=== PATIENT | male | born 1925 | race Caucasian/White ===

== ENCOUNTER 2016-07-17 13:46 | Inpatient (IN) | payer MEDICARE, OTHER ==
[~2016-07-17] VITALS: Ht 170.2 cm; Wt 68.8 kg
--- NOTE | ~2016-07-17 | ECHO ---
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 Summary The estimated left ventricular ejection fraction is 50%WMAs are difficult to comment on.The left ventricle is normal in size .Mild concentric left ventricular hypertrophy. Increased RA pressures. MAC. Mild mitral regurgitation by color Doppler. Mild aortic sclerosis. There is mild aortic regurgitation by color Doppler. TDS. Procedure Type of Study TTE procedure:2D Echocardiogram, M-Mode, Doppler , Color Doppler. Procedure Date Date: 07/20/2016 Start: 01:04 PM Study Location: Inpatient Portable Technical Quality: Adequate visualization Indications:Acute and subacute bacterial endocarditis and Endocarditis. Appropriate Use Criteria: 9 Patient Status: Routine HR: 111 bpm BP: 100/58 mmHg M-Mode/2D Measurements LV Diastolic Dimension: 2.85 cm LV Systolic Dimension: 1.68 cm LV Septum Diastolic: 1.13 cm LV PW Diastolic: 1.12 cm AO Root Dimension: 3.2 cm Cardiac Output: 4.59 l/min LA Dimension: 2.1 cm LVOT: 1.9 cm LVOT VTI: 14.6 cm RV Base: 3.42 cm LV Stroke volume: 41.37 ml RV Length: 5.75 cm TAPSE: 1.13 cm TDI-S': 13.8 cm/s Doppler Measurements AV Peak Velocity: 1.28 m/s MV Peak E-Wave: 0.54 m/s AV Peak Gradient: 6.55 mmHg MV Peak A-Wave: 0.71 m/s AV Mean Gradient: 4 mmHg MV E/A Ratio: 0.76 LVOT Peak Velocity: 0.72 m/s MV P1/2t: 75 msec AV P1/2t: 715 msec TR Gradient:19.54 mmHg PV Peak Velocity: 0.78 m/s PV Peak Gradient: 2.4 mmHg E' Septal Velocity: 0.05 m/s A' Septal Velocity: 0.08 m/s E' Lateral Velocity: 0.06 m/s A' Lateral Velocity: 0.11 m/s Findings Left Ventricle The left ventricle is normal in size .Mild concentric left ventricular hypertrophy.LVEF is low normal or mildly reduced.EF:50%WMAs are difficult to comment on. Right Ventricle Normal right ventricle structure and function. Left Atrium Normal left atrial size. Right Atrium Normal right atrial size. Increased RA pressures. Mitral Valve Mild mitral annular calcification. Mild mitral regurgitation by color Doppler. Aortic Valve The aortic valve is mildly sclerotic. There is mild aortic regurgitation by color Doppler. Tricuspid Valve Normal tricuspid valve structure and function. Pulmonic Valve Normal pulmonic valve structure and function. Trivial pulmonic valve regurgitation by color Doppler. Pericardial Effusion No evidence of pericardial effusion. Miscellaneous Visualized portions of the aortic root and ascending aorta appear normal in size. Pleural Effusion No evidence of pleural effusion. Contractility Score LV regional wall motion:(0-Non visualized 1-Normal 2-Hypokinesis 3-Akinesis 4-Dyskinesis 5-Aneurysm) Signature dtt: Yaquelin Sequeira dtd: 07/20/16 1304 Physician Self Edit
--- NOTE | ~2016-07-17 | CON ---
PATIENT'S NAME: LASHAE LEVY [facility] AGE: 89 Y [address] ROOM: G6210 [place], [place] [address] LOCATION: GICU ADMIT DATE: 07/17/2016 Consultation DISCHARGE DATE: FAMILY PHYSICIAN: Jase Pink MD ATTENDING PHYSICIAN: MARLIN MELTON DATE OF CONSULTATION: 07/17/2016 REFERRING PHYSICIAN: SHEREE LU MD REASON FOR CONSULTATION: Evaluation and management of a patient with acute respiratory failure including mechanical ventilator management. CHIEF COMPLAINT: Altered mental status. HISTORY OF PRESENT ILLNESS: This is an 89-year-old gentleman with history of advanced dementia, atrial fibrillation, stage IV sacral ulcer, coronary artery disease, TIA, and multiple other comorbidities, who was brought in by his son to our emergency department for altered mental status. All the pertinent information was obtained from talking to the other healthcare providers and the patient's son. At the time of my examination, the patient was intubated and sedated in the intensive care unit. Apparently although he has dementia, he is still able to talk at his baseline. However for the last week, the patient stopped talking and has had a very poor appetite. Today, the son found his father to be very weak and brought him to our emergency department. There was evidence of significant swelling of his left knee, reason for which Dr. Melton performed a left knee arthrocentesis. He reportedly drained pus. Upon arrival to the emergency department, the patient was found to be also in respiratory failure. BiPAP was attempted, but eventually the patient had to be intubated because of his profound generalized weakness and increased respiratory rate. After intubation, the patient was started on assist-control mode with a tidal volume of 500, respiratory rate of 20, PEEP of 5, and FiO2 of 100% initially. At the time of my arrival to the intensive care unit, the patient was on 60% FiO2 with oxygen saturations in the upper 90s. His peak airway pressures were in the mid 20s. However, he was breathing over the vent with occasional rates of 35. An ABG done prior to intubation revealed a pH of 7.4, pCO2 of 23, PO2 of 47 while on 5 L of oxygen. The base deficit was 8.8 and lactate was 3.2. Because of the patient's acute respiratory failure with intubation and initiation of mechanical ventilation, I was asked by the admitting physician Dr. Melton to come and evaluate the patient. PAST MEDICAL HISTORY: 1. Coronary artery disease. PATIENT'S NAME: LASHAE LEVY [facility] AGE: 89 Y [address] ROOM: [place] [address] LOCATION: GICU ADMIT DATE: 07/17/2016 Consultation DISCHARGE DATE: FAMILY PHYSICIAN: Jase Pink MD ATTENDING PHYSICIAN: MARLIN MELTON 2. History of TIA. 3. Atrial fibrillation, not on any anticoagulation. 4. Advanced dementia. 5. Protein caloric malnutrition. 6. Stage IV sacral ulcer. 7. Failure to thrive. 8. Urinary strictures, status post permanent Robles catheter placement. PAST SURGICAL HISTORY: 1. Coronary artery bypass graft surgery. 2. Hernia repair. 3. Bilateral knee replacement. MEDICATIONS: Home medications were reviewed as per chart. FAMILY HISTORY: Three of his brothers had heart surgeries; his daughter the child had stroke, and diabetes. His parents had hypertension. SOCIAL HISTORY: The patient lives in a nursing facility and needs assistance throughout the day and night. He has no recent history of alcohol, tobacco, or illicit drug abuse. ALLERGIES: TO PENICILLIN, SULFA, AND MEPERIDINE. REVIEW OF SYSTEMS: Could not be obtained because of patient's clinical status. He was intubated and sedated at the time of my examination. PHYSICAL EXAMINATION: VITAL SIGNS: Temperature was 103.2, pulse was 127, respiratory rate was 30, blood pressure was 112/77, oxygen saturation 97% on 60% FiO2, weight 61.5 kilos, height was 5 feet and 7 inches with a BMI of 21.2. GENERAL: This is an elderly male, frail looking. Intubated and sedated with sedation analgesia score of 3. NEUROLOGICAL: Moving all extremities at times, but not able to follow any commands. HEENT: Atraumatic head. Pupils were reactive to light. Anicteric sclerae. Dry oral mucosa. NECK: Supple with no JVD with flat neck veins. No thyromegaly. No lymphadenopathy. Trachea is in midline. CARDIOVASCULAR: Irregularly irregular rhythm and rate. No murmur, rubs, or PATIENT'S NAME: LASHAE LEVY [facility] AGE: 89 Y [address] ROOM: G6210 [place], [place] [address] LOCATION: [facility] ADMIT DATE: 07/17/2016 Consultation DISCHARGE DATE: FAMILY PHYSICIAN: Jase Pink MD ATTENDING PHYSICIAN: MARLIN MELTON. RESPIRATORY: He had decreased breath sounds at both lung bases, but clear to auscultation otherwise. ABDOMEN: Soft, nontender, and nondistended. Bowel sounds are present. EXTREMITIES: No lower extremity edema. No cyanosis and no clubbing. LABORATORY DATA: Pertinent data as per history of present illness. His ammonia level was elevated at 61. D-dimer was 7.37. A complete metabolic profile revealed a sodium of more than 175 - this is above the upper limit of detection. Potassium was 4, chloride was 143, total serum bicarbonate of 17, glucose of 142, calcium of 9.5, BUN of 77, creatinine of 2. Albumin of 2.1, total protein of 6.7, globulin of 4.6, AST of 21, ALT of 34, alkaline phosphatase of 100. Uric acid was 18.6, procalcitonin was 0.25. WBC of 19.4, hemoglobin of 11.3, hematocrit of 29.2, and platelets of 603. Troponin I was less than 0.04. IMAGING STUDIES: Chest x-ray, reviewed by me, did not show any focal opacities to suggest pneumonia. He also had no pleural effusions, pneumothorax, or significant cardiomegaly. ASSESSMENT AND PLAN: 1. Acute respiratory failure. This is in context of severe sepsis in a patient with failure to thrive, advanced dementia, and severe dehydration. He is status post intubation and initiation of mechanical ventilation with stable respiratory status. 2. Severe sepsis. This is due to septic left knee arthritis. 3. Acute kidney injury. This is in context of severe sepsis. 4. Hyponatremia. This is very severe, most likely due to total water deficit in context of decreased p.o. intake. 5. Septic left knee arthritis. The orthopedic surgeon, Dr. Lu, has already been involved in the case. 6. Atrial fibrillation with rapid ventricular rate. He was started on Cardizem drip. 7. Metabolic acidosis. This is in context of severe sepsis and is of lactic acid type. PLAN: 1. We will continue mechanical ventilation and we will await for resolution or improvement of severe sepsis and organ dysfunction before proceeding with spontaneous breathing trial. 2. IV fluids will be as per renal and hospitalist teams. The patient needs aggressive hydration, but with close followup of his sodium levels to prevent brain edema. PATIENT'S NAME: LASHAE LEVY [facility] AGE: 89 Y [address] ROOM: [place] [address] LOCATION: [facility] ADMIT DATE: 07/17/2016 Consultation DISCHARGE DATE: FAMILY PHYSICIAN: Jase Pink MD ATTENDING PHYSICIAN: MARLIN MELTON 3. I would hold off on knee surgery for now secondary to the patient's multiorgan dysfunction syndrome. 4. He was started on broad-spectrum antibiotics in the form of meropenem and vancomycin and I agree with this. 5. He will need close followup of his CBC, complete metabolic profile, and cultures. 6. He is at high risk of developing septic shock. Because of his increased heart rate, I wish to start him on phenylephrine as the first vasopressor of choice. The goal is to keep the mean arterial pressure more than 65. The current assessment and plan was discussed with the patient's son, the hospitalist, Dr. Garcia from [facility] and Dr. Lu. I spent 45 minutes of critical care time managing acute respiratory failure in a patient with severe sepsis due to septic left knee arthritis and multiple metabolic abnormalities and organ dysfunction was. I personally reviewed the data and coordinated care among healthcare providers, and personally updated the family at the bedside. This time is independent from the time spent for procedures. I would like to thank you, Dr. Melton, for giving me the opportunity to participate in this patient's care. MD KIMBERLEE ODOM/carmen /[id number] d: 07/18/16 1158 t: 07/19/16 1347, CONSULTATION REPORT
--- NOTE | ~2016-07-17 | CON ---
PATIENT'S NAME: LASHAE LEVY [facility] AGE: 89 Y [address] ROOM: G6210 [place], [place] [address] LOCATION: GICU ADMIT DATE: 07/17/2016 Consultation DISCHARGE DATE: FAMILY PHYSICIAN: Jase Pink MD ATTENDING PHYSICIAN: MARLIN GONZALEZ DATE OF CONSULTATION: 07/22/2016 REFERRING PHYSICIAN: SHEREE LU MD REASON FOR CONSULTATION: MRSA bacteremia, septic left total knee arthroplasty, and sepsis. HISTORY OF PRESENT ILLNESS: Mr. Gege French is an 89-year-old male who resides at a skilled facility. He was brought in after his son noticed that he was not doing very well. He has multiple medical problems and has not been mobile for some time. Apparently, he has not been eating much or talking much over the past week. His knee seemed to be worse as well, and so he brought him in. In the ED, he had effusion of his knee, so this was tapped, and it was pus. His culture from this is growing MRSA, and he also has blood cultures that were growing MRSA. It is noted that his sodium was over 175 as well, and he was profoundly dehydrated. He has been resuscitated and remains critical in the ICU. He is planned to have an explant of his left total knee arthroplasty today. ID is asked to see and assist with further antibiotics. The patient apparently had his knee done about 20 years ago in [place]. Apparently, he has had long- standing problems with the left knee, but the son does not think it was ever infected. Currently, at baseline, he talks, but does not make a lot of sense. He has also had a large sacral pressure ulcer that he was here for some time in the past, but still has a sacral pressure ulcer that probes to bone. ID is asked to see and assist with antibiotics. PAST MEDICAL HISTORY: Significant for the dementia, coronary artery disease, atrial fibrillation, stage IV pressure ulcer, bilateral knee replacements, and urethral strictures. MEDICATIONS: Noted. 1. He has been on vancomycin. 2. Now, he is on meropenem, which was started today. ALLERGIES: LISTED TO PENICILLINS, SULFA, AND MEPERIDINE. SOCIAL HISTORY: He is at a prison facility. He is not currently smoking, I do not PATIENT'S NAME: LASHAE LEVY [facility] AGE: 89 Y [address] ROOM: G6210 [place] [address] LOCATION: GICU ADMIT DATE: 07/17/2016 Consultation DISCHARGE DATE: FAMILY PHYSICIAN: Jase Pink MD ATTENDING PHYSICIAN: MARLIN GONZALEZ know about past habits; really not contributory in this case. FAMILY HISTORY: Really not contributory to this case given his age and multiple medical problems. REVIEW OF SYSTEMS: Not obtainable given his dementia and current status, intubated and septic, in the ICU. PHYSICAL EXAMINATION: GENERAL: He is not responsive. Orally intubated. VITAL SIGNS: His T-max now is 99.0, blood pressure is 110/61, pulse is 79, and respirations 27. HEENT: Pupils respond. He is orally intubated. NECK: Supple. LUNGS: Coarse. ABDOMEN: Soft. EXTREMITIES: He has an effusion about his left knee. It is only mildly warm. There is no drainage or erythema. The skin is otherwise without rash. LABORATORY DATA: Sodium, which was greater than 175, is down to 149; potassium 3.2; chloride 124; bicarbonate is 15; BUN 49; and creatinine 1.2. White count 6.8, hemoglobin 7.3, and platelet count 168. ESR is 109. His synovial fluid: White cells were 100,300, of which 98% were polys. He did not have any crystals. Blood cultures on presentation on the are both growing MRSA. Urine culture is growing MRSA and diphtheroids. Synovial fluids: MRSA. BAL is MRSA along with Mary albicans. Chest x-ray shows an increasing left lower lobe focal opacity. ASSESSMENT: 1. Bacteremia with methicillin-resistant Staphylococcus aureus. 2. Septic left total knee arthroplasty with methicillin-resistant Staphylococcus aureus. 3. Sepsis. 4. Question pneumonia. 5. Dementia. 6. Sacral pressure ulcer. PLAN: Agree with vancomycin. Dose based on his renal function has been done and would keep his trough in the 15 to 18 range if it all possible. Meropenem was added today, although it is not clear that he has a new pneumonia. He is afebrile, and his white count has come down as time has gone on. If anything, PATIENT'S NAME: LASHAE LEVY [facility] AGE: 89 Y [address] ROOM: [facility] [place] [place] [address] LOCATION: [facility] ADMIT DATE: 07/17/2016 Consultation DISCHARGE DATE: FAMILY PHYSICIAN: Jase Pink MD ATTENDING PHYSICIAN: MARLIN GONZALEZ this might be just related to the MRSA. If nothing shows up on a new sputum culture, would stop his meropenem. He is going to go to the OR today. Thus, will need vancomycin for 6 weeks. In the big picture, his prognosis is extremely grim given his multiple medical problems and his current status with MRSA sepsis. I would prefer a more palliative approach here. Discussed with Dr. Apodaca. MD FREDO ATWOOD/carmen /[id number] d: 07/22/16 1806 t: 08/19/16 1758, CONSULTATION REPORT
--- NOTE | ~2016-07-17 | CON ---
PATIENT'S NAME: LASHAE LEVY [facility] AGE: 89 Y [address] ROOM: [place] [address] LOCATION: [facility] ADMIT DATE: 07/17/2016 Consultation DISCHARGE DATE: FAMILY PHYSICIAN: Jase Pink MD ATTENDING PHYSICIAN: MARLIN MELTON DATE OF CONSULTATION: 07/20/2016 REFERRING PHYSICIAN: Marlin Melton MD REASON FOR VISIT: Wound Care visit to evaluate and treat a stage IV full-thickness sacral pressure ulcer. HISTORY OF PRESENT ILLNESS: This is an 89-year-old male patient who was admitted to [facility] with respiratory failure. I am well familiar with the patient. I last saw him at the [facility] on July 08. He has had a stage IV sacral pressure ulcer since March 2016. The patient has been residing at the [facility] and they have been performing wet-to-dry dressing changes b.i.d. No necrosis noted to the wound bed, so we opted to switch the patient to Aquacel and a foam dressing; however, the [facility] called and said he needs at least daily dressing changes to qualify for skilled care, so we were going to continue wet-to-dry dressing changes through July 26. He was scheduled to see us on July 22 in the [facility]. The patient is currently intubated and unable to provide a history. He does have a significant history of dementia, coronary artery disease, atrial fibrillation, hypertension, CVA, TIA, hypercholesteremia, MRSA, and Pseudomonas. The [facility] has been lying him down and he is only up for meals. They also had him on a protein supplement 3 times a day. PAST MEDICAL HISTORY: Dementia, coronary artery disease, atrial fibrillation, history of a TIA, stage IV sacral pressure ulcer, protein-calorie malnutrition, failure to thrive, BPH, history of MRSA and Pseudomonas, urethral stricture, vitamin D deficiency, constipation, and anxiety disorder. PAST SURGICAL HISTORY: CABG, bilateral knee replacements, and hernia repair. FAMILY HISTORY: Per previous records, his parents had hypertension. PATIENT'S NAME: LASHAE LEVY [facility] AGE: 89 Y [address] ROOM: [place] [address] LOCATION: [facility] ADMIT DATE: 07/17/2016 Consultation DISCHARGE DATE: FAMILY PHYSICIAN: Jase Pink MD ATTENDING PHYSICIAN: MARLIN MELTON SOCIAL HISTORY: The patient currently is residing at [facility]. Prior to that, he was living in a [facility] in [place]. He was a former smoker. No alcohol use noted. ALLERGIES: PENICILLIN, SULFA, MEPERIDINE, AND BACTRIM. CURRENT MEDICATIONS: Please refer to the medication administration record. REVIEW OF SYSTEMS: Unable to complete due to the patient being intubated. PHYSICAL EXAMINATION: VITAL SIGNS: Temperature 97.8, pulse 80, respirations 29, blood pressure 119/83, and pulse oximetry 95%. Height 5 feet 7 inches and weight 65.1 kg. GENERAL: The patient is intubated. Pale. Thin. HEENT: Head is normocephalic and atraumatic. LUNGS: Respirations even and unlabored. ABDOMEN: Flat and nontender. EXTREMITIES: Deferred. SKIN: To the patient's sacrum, he has a pressure ulcer that measures 4.5 cm width x 4.5 cm length x 0.6 cm depth. There is undermining from the 12 o'clock to 9 o'clock area with the deepest portion probing to 1.0 cm. Wound bed is pale with about 10% exposed bone. Periwound is slightly macerated and red, but intact. Moderate amount of serosanguineous exudate noted. No odor or fluctuance noted. No purulent exudate noted. LABORATORY DATA: Sodium 162, potassium 3.1, chloride 133, bicarbonate 19, BUN 61, creatinine 1.4, and glucose 125. Albumin 2.6. Blood cultures are positive for MRSA. Respiratory cultures positive for MRSA and Mary albicans. ASSESSMENT AND PLAN: Again, this is an 89-year-old male patient who was admitted to [facility] with acute respiratory failure. Wound Care consulted to evaluate his stage IV sacral pressure ulcer. 1. Stage IV full-thickness sacral pressure ulcer. Area probes to bone. Stable since I last visualized it. No need for mechanical debridement with wet-to-dry dressing changes. I covered the site with a sample Aquacel Ag foam dressing. I instructed Nursing to change on Mondays and and p.r.n. saturation. On , we will switch the patient to Aquacel and an Allevyn foam dressing. If Nursing has any questions, they can give us a call at [phone]. The patient is currently stooling only PATIENT'S NAME: LASHAE LEVY [facility] AGE: 89 Y [address] ROOM: [place] [address] LOCATION: GICU ADMIT DATE: 07/17/2016 Consultation DISCHARGE DATE: FAMILY PHYSICIAN: Jase Pink MD ATTENDING PHYSICIAN: MARLIN MELTON once per day. If stooling is increased or dressing starts to roll we may have to figure out another option for the patient. Dietary consult was ordered. The patient's heels are to be afloat at all times. Strict pressure redistribution measures are to be performed and the patient is to be turned in bed q.2 hours side to side to relieve pressure to the site. The patient's son Chris still wants aggressive treatment. I wonder when it will be appropriate for more conservative measures. 2. Acute hypoxic respiratory failure. The patient is currently intubated. Hospitalist is managing. 3. Atrial fibrillation with rapid ventricular response. The patient is on metoprolol and Cardizem. 4. Severe sepsis. Likely secondary to urinary tract infection and left knee septic joint. The patient is on antibiotic therapy. Hospitalist is managing. 5. Protein-calorie malnutrition. Dietary consult. I would like to thank Dr. Melton for this consultation. RICARDO CUNNINGHAM APRN FOR MD LINDEN MENESES/carmen /[id number] d: 07/20/16 1222 t: 08/11/16 1352, CONSULTATION REPORT
--- NOTE | ~2016-07-17 | HP ---
PATIENT'S NAME: LASHAE LEVY [facility] AGE: 89 Y [address] ROOM: [place] [address] LOCATION: GICU ADMIT DATE: 07/17/2016 History & Physical DISCHARGE DATE: FAMILY PHYSICIAN: Jase Pink MD ATTENDING PHYSICIAN: MARLIN GONZALEZ DATE OF SERVICE: CHIEF COMPLAINT: Altered mental status. HISTORY OF PRESENT ILLNESS: An 89-year-old gentleman with a past medical history of advanced dementia, atrial fibrillation, not on any anticoagulation; history of bilateral knee replacement and infection of the prosthesis in the past; stage IV sacral ulcer; coronary artery disease; history of TIA; and failure to thrive, who was brought in by son today with altered mental status. Most of the history was obtained from the son and the chart reviewed. The son describes that he has been declining for over course of one week, not talking much, and having no appetite. Given his advanced dementia, son told that he usually talks but does not make much sense, but he quit talking one week ago. He did not complain of any chest pain at home, did not complain of any abdominal pain. He also has a history of urinary stricture, have a chronic indwelling Robles catheter. REVIEW OF SYSTEMS: Due to the patient's obtunded condition, review of systems could not be obtained. ALLERGIES: THE PATIENT IS ALLERGIC TO PENICILLIN, SULFA, MEPERIDINE WELL BACTRIM. PAST MEDICAL HISTORY: Includes: 1. Coronary artery disease. 2. Atrial fibrillation, not on any anticoagulation. 3. History of TIA. 4. Stage IV sacral ulcer. 5. Protein-calorie malnutrition. 6. Advanced dementia. 7. Failure to thrive. 8. Bilateral knee replacements. 9. Urinary strictures. CURRENT MEDICATIONS: PATIENT'S NAME: LASHAE LEVY [facility] AGE: 89 Y [address] ROOM: [place] [address] LOCATION: GICU ADMIT DATE: 07/17/2016 History & Physical DISCHARGE DATE: FAMILY PHYSICIAN: Jase Pink MD ATTENDING PHYSICIAN: MARLIN GONZALEZ Medications are being reconciled right now. FAMILY HISTORY: Reviewed with the son and was not significant for coronary artery disease or diabetes. SOCIAL HISTORY: The patient lives in nursing facility, needs to assist. No ongoing toxic habits. PHYSICAL EXAMINATION: VITAL SIGNS: In the emergency department, his heart rate was in the 160s, blood pressure was 112/76, his respiratory rate was greater than 25, and saturating 76% on BiPAP at the time of my evaluation. GENERAL: He is obtunded. CARDIOVASCULAR: Variable S1 and S2. No murmurs, gallops, or rubs. LUNGS: Clear to auscultation bilaterally. ABDOMEN: Soft, nontender, and nondistended. Bowel sounds present. EXTREMITIES: Left knee joint is warm, tender to touch and swollen. No clubbing or cyanosis is noted in the extremities. NEUROLOGIC: Exam was performed and GCS was 7 at the time of my examination. LABORATORY DATA AND IMAGING STUDIES: Chest x-ray was obtained on my review, does reveal some mild interstitial prominences and mild vascular congestion. No acute infiltrate could be seen at this point. His ABG in the emergency department showed a pH of 7.4, pCO2 of 23, and pO2 of 47. Lactic acid was elevated at 3.2. Accu-Chek was 132, ammonia level was up at 61. Two sets of troponin levels were negative. ProBNP was elevated at 1105. White count was elevated at 19, platelets 603,000, and hemoglobin of 11. His complete metabolic panel was impressive for sodium greater than 175 and was repeated, it was still greater than 175, potassium was 4.0, chloride 143, bicarbonate 17, calcium of 9.5, creatinine 2.0, BUN 77, total protein 6.7, and albumin 2.1. AST 21, ALT 34, and alkaline phosphatase 100. Total bilirubin 0.6, mag of 2.8. ESR 106, INR 1.2. His urinalysis on the Robles's was grossly positive for urinary tract infection. Procalcitonin was 0.25. ASSESSMENT AND PLAN: 1. Acute hypoxic respiratory failure. 2. Acute metabolic encephalopathy. 3. Severe sepsis likely secondary to urinary tract infection as well as left knee septic joint. 4. Atrial fibrillation with a rapid ventricular rate. 5. Septic left knee joint. 6. Stage IV decubitus sacral ulcers. PATIENT'S NAME: LASHAE LEVY [facility] AGE: 89 Y [address] ROOM: [facility] [place], [place] [address] LOCATION: [facility] ADMIT DATE: 07/17/2016 History & Physical DISCHARGE DATE: FAMILY PHYSICIAN: Jase Pink MD ATTENDING PHYSICIAN: MARLIN GONZALEZ 7. History of cerebrovascular accident. 8. History of transient ischemic attack. 9. Coronary artery disease. 10. Severe hypernatremia. 11. Severe metabolic acidosis. 12. 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 13. Adult failure to thrive. 14. Protein-calorie malnutrition. 15. Severe advanced dementia. PLAN: The patient's condition was discussed with the son who is power of electrical troubleshooter and he wanted to do everything for this patient except chest compression. It was asked again as the patient also have advance directive and son is the power of electrical troubleshooter. The son repeated that he wants everything to be done except chest compression. The patient was intubated in the emergency department because of hypoxia. He was brought down to the ICU. He was having atrial fibrillation with a rapid ventricular rate. We initiated with sepsis protocol, two sets of blood cultures have been ordered. Urinary cultures have been ordered. Broad-spectrum antibiotics have been initiated. He had already received 2 L of IV fluids. Metoprolol or Cardizem are being used to control the heart rate. Given his left knee swelling and recent administration of antibiotics, we aspirated his left knee with 10 mL off gross pus. Orthopedic consultation has been made. Nephrology has been consulted regarding his hypernatremia and management of that. We are going to repeat electrolytes every 4 hours. Wound Care has been consulted for stage IV ulcer. The patient's condition and prognosis is very guarded. This was discussed in depth with the son. I spent 75 minutes in providing critical care to this patient. MD LEILA HARRIS/carmen /[id number] D: 914 T: HISTORY & PHYSICAL
--- NOTE | ~2016-07-17 | DS ---
PATIENT'S NAME: LASHAE LEVY [facility] AGE: 89 Y [address] ROOM: [place] [address] LOCATION: [facility] ADMIT DATE: 07/17/2016 Discharge Summary DISCHARGE DATE: FAMILY PHYSICIAN: Jase Pink MD ATTENDING PHYSICIAN: Roshan Melton PRINCIPAL DIAGNOSIS: 1. Methicillin-resistant Staphylococcus aureus bacteremia. SECONDARY DIAGNOSES: 1. Acute hypoxic respiratory failure. 2. Acute metabolic encephalopathy. 3. Septic shock secondary to methicillin-resistant Staphylococcus aureus. 4. Septic left knee joint secondary to methicillin-resistant Staphylococcus aureus. 5. Methicillin-resistant Staphylococcus aureus urinary tract infection. 6. MSSA pneumonia. 7. Stage IV decubitus sacral ulcer, present on admission. 8. Atrial fibrillation. 9. History of cerebrovascular accident. 10. Coronary artery disease. 11. Severe hypernatremia. 12. Severe metabolic acidosis. 13. Adult failure to thrive. 14. Protein-calorie malnutrition. 15. Severe advanced dementia with poor quality of life. 16. Acute kidney injury. HOSPITAL COURSE: An 89-year-old gentleman with severe advanced comorbid conditions as mentioned above including adult failure to thrive, severe protein-calorie malnutrition, and very advanced dementia, who was admitted to the [facility] to the emergency department where he presented with history of 1 week of not talking, not eating, and not behaving himself as observed by the custodial facility and the son, and he was brought in. On admission to the hospital, he was severely hypoxic, obtunded. Son accompanied the patient. The patient had advanced directive, which made his son power of senior attorney. He was DNR/DNI. It was discussed with the son at the time of the admission to the hospital about the code status, and son wanted to do everything possible at this point except chest compression. The patient was intubated in the emergency department secondary to hypoxia with saturation 76%. Lab work initial was done showed severe sepsis with high white count and high procalcitonin level. Of note, his sodium level was greater than 175, which were nondetectable by our lab parameters. He was brought to the ICU on the ventilation. He was started on careful IV hydration with in-consultation with Nephrology to correct his hypernatremia, which we assume was there for many days PATIENT'S NAME: LASHAE LEVY [facility] AGE: 89 Y [address] ROOM: [id number] [place], [place] [address] LOCATION: [facility] ADMIT DATE: 07/17/2016 Discharge Summary DISCHARGE DATE: FAMILY PHYSICIAN: Jase Pink MD ATTENDING PHYSICIAN: Roshan Melton. He was started on broad-spectrum antibiotics initially. Left knee swelling was noted on initial physical exam. We did the arthrocentesis, which did reveal 10 mL of zoë pus coming out of it. Orthopedic consultation was made, but because of the patient's very severe critical illnesses, he was not cleared for anesthesia at that point. He continued to be treated with the IV antibiotics and IV hydration over the course of many days in the ICU. He was eventually extubated. His blood cultures did grow MRSA, which was sensitive to vancomycin. Finally, Orthopedic Surgery took the patient to the operating room and did the I and D of the left knee. Per Infectious Disease consultation, he was started on vancomycin for 6 weeks. Critical Care consultation was also obtained. After 2 to 3 weeks, he was transferred to the regular floor from the ICU. His condition was very guarded at that time as well. He was essentially nonverbal, and we could only find staring and no purposeful verbal response for him. Multiple discussions with the family were held including the palliative/hospice care regarding the poor quality of life and advanced comorbidities, but the son was adamant to continue to do everything possible we can except the chest compression. The patient was so altered mental status that it was not safe for him to swallow anything including a modified barium swallow, and again meeting was held with the son, and he wanted us to go ahead and put a PEG tube in him. We made a surgical consultation, and after talking to the family, they went ahead and put a PEG tube, and we started tube feeds through that. Wound care continued to see this patient through the hospitalization for the stage IV decubitus sacral ulcer, which has been there for many weeks before admission to the hospital. His condition remained pretty much the same during the course of the hospitalization with very poor quality of life expected. Multiple consultations as well as referrals were sent for the [facility] facility. [facility] have currently accepted this patient and will be transferring this patient on Wednesday. Before the discharge to the [facility], he again developed NANCY, which I believe was secondary to prerenal and improved with IV and PEG tube hydration. Discharge medications will be dictated later. CONSULTATIONS DONE DURING HOSPITALIZATION: Nephrology consultation, Orthopedic consultation, General Surgery consultation, Critical Care consultation, Vascular consultation, Palliative Care consultation. PROCEDURES DONE IN THIS HOSPITALIZATION: Intubation, central-line placement, PEG-tube placement, left knee hardware removal as well as irrigation and debridement. CONDITION ON DISCHARGE: Very guarded with poor prognosis. Rehabilitation potential poor. PATIENT'S NAME: LASHAE LEVY [facility] AGE: 89 Y [address] ROOM: [place] [address] LOCATION: [facility] ADMIT DATE: 07/17/2016 Discharge Summary DISCHARGE DATE: FAMILY PHYSICIAN: Jase Pink MD ATTENDING PHYSICIAN: Roshan Melton I spent 45 minutes in discharge planning of this patient. MD LEILA HARRIS/modl /[id number] d: 08/10/16 0323 t: 08/16/16 1507, DISCHARGE SUMMARY
--- NOTE | ~2016-07-17 | OR ---
PATIENT'S NAME: LASHAE LEVY [facility] AGE: 89 Y [address] ROOM: [place] [address] LOCATION: GICU ADMIT DATE: 07/17/2016 OR/Procedure Report DISCHARGE DATE: FAMILY PHYSICIAN: Jase Pink MD ATTENDING PHYSICIAN: MARLIN GONZALEZ SURGEON: Oziel Munguia MD LAB INSTRUCTOR: Calos Esposito PA-C. DATE OF PROCEDURE: 07/22/2016 PREOPERATIVE DIAGNOSIS: Left septic and loose total knee arthroplasty. POSTOPERATIVE DIAGNOSIS: Left septic and loose total knee arthroplasty. PROCEDURES PERFORMED: 1. Left total knee arthroplasty explant. 2. Placement of negative pressure incisional wound VAC, length of incision measuring 20 cm. ANESTHESIA: General endotracheal anesthesia. FLUIDS: See Anesthesia report. ESTIMATED BLOOD LOSS: Less than 50 mL. SPECIMENS: Left knee cultures, left knee joint soft tissue specimen, and removed total knee arthroplasty implant. COMPLICATIONS: None. DISPOSITION: Stable in PACU. COUNT RESULTS: All counts were correct. IMPLANTS: Include Josy antibiotic cement spacers and beads. INDICATIONS: Mr. Gege French is an 89-year-old gentleman, who was septic and hypernatremic. He has been in the ICU. He had the left total knee replaced in [place], [place] approximately 20 years ago. The knee has been set to be removed, with placement of antibiotic spacers today. The risks, benefits, and alternatives of pursuing a surgical intervention were discussed with the family as the patient is currently intubated. They elected to proceed with surgery. I marked the left lower extremity indicating the correct surgical site. Anesthesiology was consulted for the perioperative evaluation of the patient. OPERATIVE REPORT IN DETAIL: The patient was taken to the holding area of the PATIENT'S NAME: LASHAE LEVY [facility] AGE: 89 Y [address] ROOM: [place] [address] LOCATION: GICU ADMIT DATE: 07/17/2016 OR/Procedure Report DISCHARGE DATE: FAMILY PHYSICIAN: Jase Pink MD ATTENDING PHYSICIAN: MARLIN GONZALEZ Operating Room. General anesthesia was administered. The patient was previously intubated. Antibiotic was administered. The left lower extremity was then prepped and draped in a sterile fashion. I turned my attention to the the left knee, and an Esmarch was used to exsanguinate the limb. The tourniquet was deflated at 250 mmHg. There was a large knee joint effusion present on the previous anterior surgical incision from a previous left total knee replacement. I made a surgical incision through the previous surgical incision on the anterior aspect of the knee, the skin, subcutaneous tissue, and capsule down to the joint. There was approximately 300 mL of gross purulence removed from the joint and subsequently sent for culture. I then began by flexing the knee up and dislocating it. The femoral and tibial components were loose. I first removed the femoral component. I subsequently removed the tibial component and polyethylene liner. Using an oscillating saw, I removed the patellar button. I used a 3.5-mm drill bit to drill out the three polyethylene pegs from the patella. I used an oscillating saw to re-finish the surface to remove the thick bone cement that had been previously placed. I turned my attention to the distal femur. There was segmental loss of bone at the anterior aspect of the distal femur, and at the level of the lateral condyle. The medial femoral condyle was relatively well preserved. Notably, the patient's previous initial total knee replacement components were grossly oversized. I used the oscillating saw to clean up the distal femur, both anteriorly at the level of the medial and femoral condyles, and then posteriorly at the posterior condyles. I used an osteotome and mallet to remove any excess cement. I was very conservative in attempting to remove as little bone as possible, though most bone had been already resorbed as this implant probably failed many years ago. I used a series of curettes as well to remove bone and as well on the tibial side. I used a rongeur and Bovie electrocautery device to remove the inflamed synovium. Both my quadriceps tendon and patellar tendon were intact. The wound and the femoral and tibial intramedullary canals were irrigated with 6 L of normal sterile saline solution via pulsatile lavage. Once the surfaces were well prepped and antibiotic spacers were then cemented into place, the knee was brought into full extension. Antibiotic beads were placed in the medial and lateral gutters. A layered closure beginning with the capsule began with an 0 nylon suture in a [id number] fashion to reapproximate the capsule. The subcutaneous tissue was approximated with an 0 nylon suture as well. A 2-0 nylon suture was used in the interrupted, horizontal mattress fashion to approximate the skin. A negative pressure incisional wound VAC was placed over the surgical incision PATIENT'S NAME: LASHAE LEVY [facility] AGE: 89 Y [address] ROOM: [place] [address] LOCATION: [facility] ADMIT DATE: 07/17/2016 OR/Procedure Report DISCHARGE DATE: FAMILY PHYSICIAN: Jase Pink MD ATTENDING PHYSICIAN: MARLIN GONZALEZ to promote drainage postoperatively. The tourniquet was then let down. A compressive dressing was placed on the foot, up to the proximal leg consisting of Webril and Lester. The patient was then transferred from the operating table onto the ICU bed, and brought back to the ICU with his condition unchanged. There were no intraoperative complications noted. Of note, my PA, Calos Esposito PA-C, played an integral role in the intraoperative care of this patient. This included preoperative positioning, intraoperative expert retraction, and closing and dressing functions. IMPRESSION: The patient is status post the noted procedures above. PLAN: The patient will be weightbearing as tolerated on the left lower extremity in a knee immobilizer. We will order a hinged knee brace for the patient postoperatively. The surgical dressing and wound VAC can be changed in the next 48 to 72 hours. The patient's current medical condition is guarded. He will remain intubated in the ICU. We will continue with antibiotics for now. They are still attempting to lower the patient's sodium, and treat the sepsis with antibiotics. We will follow up the intraoperative wound cultures and specimens sent intraoperatively. We will continue to watch the patient closely in the perioperative period. MD AMAN CHOE/carmen /[id number] d: 07/22/16 2319 t: 08/03/16 0917, OPERATIVE SUMMARY
--- NOTE | ~2016-07-17 | DS ---
PATIENT'S NAME: LASHAE LEVY [facility] AGE: 89 Y [address] ROOM: [address] [address] LOCATION: [facility] ADMIT DATE: 07/17/2016 Discharge Summary DISCHARGE DATE: 08/10/2016 FAMILY PHYSICIAN: Jase Pink MD ATTENDING PHYSICIAN: Marlin Melton ADDENDUM: DISCHARGE MEDICATIONS: Include: 1. Pepcid 30 mg per feeding tube daily. 2. Vancomycin 750 mg IV daily. 3. Digoxin 125 mcg daily. 4. Colace 100 mg twice daily. 5. Aricept 5 mg daily. 6. Guaifenesin/dextromethorphan 10 mL 4 times daily p.r.n. 7. Nystatin powder applied to affected area topically 3 times daily. 8. Ultram 50 mg every 6 hours. 9. Reglan 5 mg per feeding tube every 8 hours. 10. Albuterol sulfate 2.5 mg inhaled twice daily. 11. Tylenol 650 mg every 4 hours as needed. 12. Tylenol 650 mg rectally every 4 hours needed. 13. MiraLAX 17 g daily p.r.n. 14. Albuterol sulfate 2.5 mg inhaled every 4 hours as needed. 15. Aricept 5 mg daily at bedtime. 16. Vitamin D 50,000 units per PEG q.7 days. We do appreciate participating in this patient's care and thank you very much for the ability to serve him while hospitalized at [facility]. Details of discharge were discussed with Dr. Pink prior to transfer. GIL MORALES FOR MARLIN MELTON MD ODILON/modl /[id number] d: 08/11/16 0303 t: 08/16/16 1510, DISCHARGE SUMMARY
--- NOTE | ~2016-07-17 | CON ---
PATIENT'S NAME: LASHAE LEVY [facility] AGE: 89 Y [address] ROOM: [id number] [place], [place] [address] LOCATION: GICU ADMIT DATE: 07/17/2016 Consultation DISCHARGE DATE: FAMILY PHYSICIAN: Jase Pink MD ATTENDING PHYSICIAN: MARLIN GONZALEZ DATE OF CONSULTATION: 07/17/2016 REFERRING PHYSICIAN: SHEREE LU MD REASON FOR CONSULTATION: Severe hypernatremia and NANCY. HISTORY OF PRESENT ILLNESS: An 89-year-old, demented gentleman, currently care home resident with history of advanced dementia; atrial fibrillation, not on long-term anticoagulation; bilateral knee replacement; with history of infection in the past; stage IV sacral decubitus; coronary artery disease; history of TIA; and failure to thrive; admitted to [facility] with altered mental status, shortness of breath, and atrial fibrillation with rapid ventricular rate. During the evaluation in the ER, the patient was found to have a sodium which is unmeasurable more than 175 and a creatinine of 2. Baseline creatinine from April this year was 0.7. The patient got intubated in the ER for acute hypoxic respiratory failure and also was started on Cardizem drip for atrial fibrillation with RVR with ventricular rate often ranging in 180s. Nephrology consultation has been called for hypernatremia and acute kidney injury. During my evaluation, the patient is intubated on mechanical ventilation, needing 60% FiO2 with a PEEP of 5. Ventricular rate currently in the range of 120s with a Cardizem drip. Blood pressure although not hypotensive, but marginal on Cardizem drip. Has not been started on any vasopressor yet. Urine output is minimal even after replacement of Robles. The patient had a chronic indwelling Robles since February last year, although the cause is not clearly known. As mentioned above, his creatinine in April was 0.7 and now the creatinine is 2 on admission. As per the son who was present at the bedside, he was doing well about 2 weeks ago since when the patient started to become confused. About a week ago, he became completely mute and was not talking. Today, the patient was having some respiratory difficulty and with significant altered mental status, apparently comatose, and the patient was transferred here to our hospital for further evaluation and management. No further information is available at this point. REVIEW OF SYSTEMS: Could not be obtained as the patient is intubated and also patient has altered mental status. ALLERGIES: ALLERGIC TO PENICILLIN, SULFA, MEPERIDINE, WELL BACTRIM. MEDICATION: List as per the MAR.PATIENT'S NAME: LASAHE LEVY [facility] AGE: 89 Y [address] ROOM: [facility] [place] [address] LOCATION: [facility] ADMIT DATE: 07/17/2016 Consultation DISCHARGE DATE: FAMILY PHYSICIAN: Jase Pink MD ATTENDING PHYSICIAN: MARLIN GONZALEZ PAST MEDICAL HISTORY: 1. Coronary artery disease. 2. Atrial fibrillation, not on long-term anticoagulation. 3. History of TIA. 4. Stage IV sacral ulcer. 5. Protein-calorie malnutrition. 6. Advanced dementia. 7. Failure to thrive. 8. Bilateral knee replacement. 9. History of infected knee prosthesis one time in the past. 10. Urinary stricture, on chronic indwelling Robles since February last year. FAMILY HISTORY: Reviewed with the son, not significant for diabetes or coronary disease or any kind of kidney disease. SOCIAL HISTORY: Lives in a care home facility and needs assist in activity of daily life, no ongoing toxic habit. PHYSICAL EXAMINATION: VITAL SIGNS: Blood pressure in 90-100 over 70, heart rate now in 120 after starting Cardizem drip, respiratory rate in 20s to 30s. Even after intubation saturating at 94%-95% on 60% FiO2 and PEEP of 5 during my evaluation. GENERAL: Elderly male, intubated on mechanical ventilation. HEAD: Bilateral PERRLA. ET tube in place. NECK: Flattened JVD. No thyromegaly or lymphadenopathy. CVS: S1 and S2 plus, irregular rate and rhythm. Tachycardiac. CHEST: Clear to auscultation anteriorly. No wheeze or rales. ABDOMEN: Soft, nontender, nondistended. Bowel sounds present. EXTREMITIES: Significant swelling on the left knee. Left knee arthrocentesis was done in the ER resulting in zoë pus. No cyanosis, clubbing, jaundice. No dependent edema. MUSCULOSKELETAL: Could not be done as patient is obtunded; however, no significant limitation on passive range of motion. SKIN: No pallor, cyanosis, icterus. 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 LABORATORY DATA: ABG: pH 7.4, pCO2 23, pO2 47. Lactate 3.2, ammonia 61. Troponin negative x2 sets. ProBNP 1105. WBC 19, platelet 603,000 hemoglobin 11. Sodium more than 175 x3, potassium 4, chloride 143, bicarbonate 17, calcium 9.5, creatinine 2, BUN 77, total protein 6.7, albumin 2.1, AST 21, ALT 34, alkaline phosphatase 100, total bilirubin 0.6, magnesium 2.8, ESR 106, INR 1.2. Procalcitonin 0.25. UA: Specific gravity 1.010, pH 6, LE 3+, nitrite positive, protein 2+, glucose negative, ketones negative, blood 3+ packed with wbc's, 10-20 rbc's, 2- 5 epithelial cells, few hyaline casts, 1+ amorphous material, few WBC clumps. PATIENT'S NAME: LASHAE LEVY [facility] AGE: 89 Y [address] ROOM: [place] [address] LOCATION: [facility] ADMIT DATE: 07/17/2016 Consultation DISCHARGE DATE: FAMILY PHYSICIAN: Jase Pink MD ATTENDING PHYSICIAN: MARLIN GONZALEZ ASSESSMENT AND PLAN: 1. Severe hypernatremia, possibly secondary to decreased p.o. intake with dementia. We will repeat the serum sodium with direct potentiometry. We will start free water in the from of D5 water IV at 1.35 mL/kg of body weight, not exceed about 80 mL. We should discontinue all the normal saline solution or infusion at this point. All the antibiotics and vasopressors to be dissolved in D5 water. The total volume should not exceed more than 80 mL. A level safe limit for sodium correction in a day will be 10-12 mEq per 24 hours. Over excessive correction may cause brain swelling and possible herniation. Although, the patient is elderly and has significant dementia and possible brain atrophy and the chance of adverse outcome with brain edema is significantly lower in this patient compared to a younger patient, but we will be very careful in correcting the serum sodium and we will avoid any further solution with significant amount of sodium chloride in it. We will repeat serum sodium q.4 hourly and please call me with all the results. 2. Acute kidney injury versus acute kidney injury on chronic kidney disease. Creatinine was 0.7 in April 2016, the patient had a chronic indwelling Robles possibly secondary for ureteral stricture. Currently, UA suggestive of a gross urinary tract infection. The patient is getting IV antibiotic for sepsis which will cover for the urinary tract infection. Acute kidney injury possibly secondary to septic acute tubular necrosis versus hemodynamic acute tubular necrosis. We cannot do intravascular volume expansion with isotonic fluid at this point, considering severe hypernatremia. We will give free water first and we will slowly correct the serum sodium before attempting intravascular volume expansion. 3. Severe sepsis, possibly secondary to septic arthritis. Left knee arthrocentesis was done in the ER, which resulted in zoë pus. The culture sensitivity and Gram stain are still pending. However, it is more than likely we have to cover for hemolysis, especially in a demented care home resident patient. The patient is currently on vancomycin and meropenem. We will continue the current medication and primary team is managing the antibiotic regimen. 4. Acute hypoxic respiratory failure. Now, we got intubated on mechanical ventilator, FiO2 60% with PEEP of 5. 5. Atrial fibrillation with rapid ventricular rate. Currently on Cardizem drip; however, Cardizem to control heart rate, but in the same time causing more hypotension. The patient probably will need some form of vasopressor to support hemodynamics. 6. Stage IV sacral decubitus ulcer, current management as per wound care team and primary team. 7. Severe metabolic acidosis possibly secondary to renal failure and severe sepsis. Has significant lactic acid elevation as well. However, we will avoid giving bicarbonate containing solution at this point. Please note especially in context of severe hypernatremia, we will closely monitor for now with q.4 hourly lab.PATIENT'S NAME: LASHAE LEVY [facility] AGE: 89 Y [address] ROOM: [place] [address] LOCATION: [facility] ADMIT DATE: 07/17/2016 Consultation DISCHARGE DATE: FAMILY PHYSICIAN: Jase Pink MD ATTENDING PHYSICIAN: MARLIN GONZALEZ Serum chemistry could not be measured the serum sodium level with indirect direct potentiometry. We will order direct potentiometry with serum sodium measurement now and every four hourly from now onwards. The patient needs to have strict intake and output, daily weight, and a renal ultrasound. Please send UA urine lytes including sodium, potassium, chloride, creatinine, osmolality, and urine urea nitrogen. Avoid significant hemodynamic stress. Maintain hemodynamic stability with MAP of more than 65. Avoid any further nephrotoxic exposure including NSAIDs and contrast media. Thank you for allowing me to participate in this patient's care. The patient's family member has been explained about the poor prognosis considering the elderly age group with multiple comorbid conditions of severe sepsis, severe hypernatremia, and acute kidney injury kidney stage 3. We will closely monitor the patient's progress along with you. NISA MAYER MD /modl /[id number] d: 07/18/16 1455 t: 07/24/16 1446, CONSULTATION REPORT
--- NOTE | ~2016-07-17 | CON ---
PATIENT'S NAME: LASHAE LEVY [facility] AGE: 89 Y [address] ROOM: [place] [address] LOCATION: [facility] ADMIT DATE: 07/17/2016 Consultation DISCHARGE DATE: FAMILY PHYSICIAN: Jase Pink MD ATTENDING PHYSICIAN: MARLIN MELTON DATE OF CONSULTATION: 07/17/2016 REFERRING PHYSICIAN: SHEREE LU MD CHIEF COMPLAINT: Left knee pain. HISTORY OF PRESENT ILLNESS: Mr. Gege French is an 89-year-old gentleman who I was asked to consult on regarding his left knee. Dr. Melton (Hospitalist), admitted the patient from the emergency room to the ICU with sepsis. The patient had a large knee joint effusion that was subsequently aspirated by Dr. Melton in the ER that was sent for analysis, but appeared floridy purulent. The patient also has a sodium of greater than 175 and is severely hypernatremic. He is currently on a ventilator in the ICU. Prior to being intubated, he did complain of left knee pain. In talking to his adult son who has provided much of the history, he reports that his father had a left knee replacement in [place], [place] approximate 20 years ago. At this time, we are still searching to find the type of replacement. Allegedly, the knee is primary and has never been revised. REVIEW OF SYSTEMS: A 10-point review of systems otherwise as mentioned above in the history. The patient's history is musculoskeletal. It pertains to his left lower extremity. There is a large swollen left knee joint with a well-healed surgical incision over the anterior aspect of the knee. PAST MEDICAL HISTORY: Hypernatremia, atrial fibrillation, bilateral knee osteoarthritis, hypertension, chronic kidney disease, coronary artery disease, history of TIA, stage IV sacral ulcer, failure to thrive, urinary strictures. PAST SURGICAL HISTORY: Includes bilateral knee replacements, approximately 20 years ago, done in [place], [place]. ALLERGIES: Penicillin, sulfa, meperidine, Bactrim. MEDICATIONS: Include: PATIENT'S NAME: LASHAE LEVY [facility] AGE: 89 Y [address] ROOM: [place] [address] LOCATION: [facility] ADMIT DATE: 07/17/2016 Consultation DISCHARGE DATE: FAMILY PHYSICIAN: Jase Pink MD ATTENDING PHYSICIAN: MARLIN MELTON 1. Cardizem. 2. Heparin. 3. Lactated Ringer's. 4. Meropenem. 5. NovoLog. 6. Saline spray. 7. Protonix. 8. Proventil. 9. Vancomycin. 10. Versed. 11. Glucose. 12. Glucagon. 13. Tylenol. FAMILY HISTORY: Reviewed with family and there is no significant history of coronary artery disease or diabetes mellitus. PHYSICAL EXAMINATION: VITAL SIGNS: Temperature 98.3, respirations of 29, heart rate of 121, blood pressure 77/63. GENERAL: Currently intubated. No acute distress. HEENT: Normocephalic, atraumatic. Currently intubated. NECK: supple, trachea is in the midline. Currently intubated. CARDIOVASCULAR: Thready peripheral pulses. CHEST: Symmetric respirations observed bilaterally. Currently intubated. ABDOMEN: Soft nontender, nondistended. Bowel sounds present. PELVIS: Stable. MUSCLOSKELETAL: Left lower extremity: Focal examination of the patient's left lower extremity reveals that he is grossly neurologically intact distally. There is a well-healed surgical incision over the anterior aspect the left knee consistent with previous left knee replacement. There is a large knee joint effusion, positive for warmth and erythema. There are thready peripheral pulses at the dorsalis pedal and posterior tibial vessels. Good capillary refill in the toes. The extremity is otherwise warm. Compartments of the thigh, leg and foot are soft. Right lower extremity: Focal examination of the patient's right lower extremity reveals that he is grossly neurologically intact distally. The compartments of the thigh, leg, and foot are soft. There is a well-healed surgical incision over the anterior aspect of the knee consistent with previous total knee replacement. No knee joint effusion present. No erythema, warmth or drainage noted. The soft tissue is intact circumferentially. There are thready peripheral pulses at the dorsalis pedal and posterior tibial vessels. Good capillary refill is noted at the toes. The extremity is otherwise warm and well perfused. LABORATORY DATA: Laboratory values include hemoglobin of 11.3, hematocrit 39.2, white blood cell count of 19.4, and platelet count of 603. Chem-7 includes a sodium of greater than 175, potassium of 4.0, chloride of 143, CO2 of 17, BUN of 77, creatinine of 2.0, and glucose of 142. Coagulation profile reveals a PT of 12, INR of 1.1, and PTT of 27. CRP is 24.1, procalcitonin is 0.25 (elevated). ESR is 106. IMAGING STUDIES: Plain radiographs of the left knee reveal evidence of a large knee joint effusion, diffuse osteopenia, and a loose total knee implant. No evidence of fracture or dislocation. IMPRESSION: 1. Septic left total knee arthroplasty. 2. Severe hypernatremia. 3. Systemic sepsis. 4. Admission to ICU in critical condition, on ventilator. PLAN: I had a long discussion with the patient's son regarding the left knee. The patient appears to had a left knee replacement approximately 20 years ago. Based upon the x-rays that I was able to review, the implant appears loose. The left knee was aspirated by one of the hospitalist in the emergency room prior to antibiotics being administered and this fluid was sent for analysis. There was gross pus pulled from the joint. The patient is currently septic. He has a sodium of greater than 175. He is on a ventilator in the ICU. I discussed the treatment options with the family. I explained that once the PATIENT'S NAME: LASHAE LEVY [facility] AGE: 89 Y [address] ROOM: [place] [address] LOCATION: [facility] ADMIT DATE: 07/17/2016 Consultation DISCHARGE DATE: FAMILY PHYSICIAN: Jaes Pink MD ATTENDING PHYSICIAN: MARLIN MELTON A patient is stable enough, I would proceed with either irrigation and debridement with polyethylene liner exchange versus explant of the left knee and placement of antibiotic spacers. Either way, I explained the patient is at high-risk for a surgical intervention regardless of invasiveness. He is currently on antibiotics and I am agreeable with this plan of treatment. His prognosis is currently guarded. We will plan for surgery as soon as medically possible. MD AMAN CHOE/carmen /[id number] d: 07/18/16 0059 t: 07/18/16 1146, CONSULTATION REPORT
--- NOTE | ~2016-07-17 | CON ---
PATIENT'S NAME: LASHAE LEVY [facility] AGE: 89 Y [address] ROOM: [address] [address] LOCATION: TU ADMIT DATE: 07/17/2016 Consultation DISCHARGE DATE: FAMILY PHYSICIAN: Jase Pink MD ATTENDING PHYSICIAN: MARLIN GONZALEZ DATE OF CONSULTATION: 08/04/2016 REFERRING PHYSICIAN: SHEREE LU MD REASON FOR CONSULTATION: PEG tube placement. HISTORY OF PRESENT ILLNESS: Mr. French is an 89-year-old gentleman who was admitted to [facility] on 07/17/2016 with altered mental status. The patient was found to be in acute respiratory failure and required intubation in the emergency room. The patient was found to have urinary tract infection and a septic left knee. He had an explant of the left knee arthroplasty on 07/22/2016 with culture showing MRSA. The patient continues on vancomycin. The patient has a history of advanced dementia, history of TIAs, stage IV sacral ulcers, protein calorie malnutrition, and failure to thrive. The patient has required a Dobbhoff tube feeding as he is not awake enough to take in adequate calories. Care Management is working on discharge plans, which include Detention in the area who can take a patient with IV antibiotic. PEG tube. We will need to be placed as the nursing homes will not take a patient with the Dobbhoff. The patient's son is at the bedside. It is noted that the hospitalist had noted the 30 minute [id number] conversation last evening to options in regard to PEG tube placement versus comfort cares etc. At that time, the son was adamant that he wanted everything done that needed to be done. This morning the patient son seems to be a little bit more hesitant and is at least considering comfort cares. The son is concerned because he is planning to leave town here for the next several days and does not want to make a decision today for comfort cares and then leave town. PAST MEDICAL HISTORY: Per review of the chart. ALLERGIES: PENICILLIN, SULFAMETHOXAZOLE, TRIMETHOPRIM, AND MEPERIDINE. MEDICATIONS: At home included: 1. Aricept 5 mg p.o. at bedtime. 2. Tylenol 650 mg p.o. t.i.d. PATIENT'S NAME: LASHAE LEVY [facility] AGE: 89 Y [address] ROOM: [place] [address] LOCATION: [facility] ADMIT DATE: 07/17/2016 Consultation DISCHARGE DATE: FAMILY PHYSICIAN: Jase Pink MD ATTENDING PHYSICIAN: MARLIN GONZALEZ 3. Aspirin low-dose enteric-coated 81 mg p.o. daily. 4. Maalox 30 mL p.o. q.24 hours p.r.n. indigestion. 5. Diltiazem 24 hour 120 mg p.o. daily. 6. Drisdol 19959 units p.o. q.7 days. 7. Milk of magnesia 30 mL p.o. q.24 hours p.r.n. constipation. 8. Senna 17.2 mg p.o. at bedtime. 9. Tylenol p.r.n. Medications in the hospital include: 1. Prevacid. 2. Reglan. 3. Albuterol. 4. Vancomycin. 5. Ultram. 6. Aricept. 7. Lanoxin. 8. Robitussin. 9. Novolin. 10. Albuterol. 11. Tylenol. ILLNESSES: Include: 1. Coronary artery disease. 2. Atrial fibrillation. 3. History of TIA. 4. Stage IV sacral ulcer. 5. Protein calorie malnutrition. 6. Advanced dementia. 7. Failure to thrive. 8. Bilateral knee replacements. 9. Urinary strictures requiring Rboles. OPERATIONS: The son does not believe the patient has had any abdominal operations. SOCIAL HISTORY: I believe the patient was residing in [place] in half-way, but this is too far away for the son, until other arrangements are being investigated. PHYSICAL EXAMINATION: VITAL SIGNS: Temperature is 98.3, blood pressure 152/70, pulse 77, respirations 24. GENERAL: An 89-year-old male who is resting in bed. He rests with his eyes closed for majority of the time I am in the room. When I start to examine him, he does open his eyes some, but has no verbal response. PATIENT'S NAME: LASHAE LEVY [facility] AGE: 89 Y [address] ROOM: [place] [address] LOCATION: [facility] ADMIT DATE: 07/17/2016 Consultation DISCHARGE DATE: FAMILY PHYSICIAN: Jase Pink MD ATTENDING PHYSICIAN: MARLIN GONZALEZ LUNGS: Clear. HEART: Regular. ABDOMEN: He has a scar in the upper abdomen from most likely a drain from his heart surgery. Abdomen is scaphoid. It is soft and nontender. ASSESSMENT: An 89-year-old male with: 1. Advanced dementia, protein calorie malnutrition, failure to thrive. 2. Septic left knee status post removal of hardware and continues on vancomycin for Methicillin-resistant Staphylococcus aureus. PLAN: I discussed with the patient options for the PEG tube versus comfort cares. I tried to explain with comfort cares would entail. The patient ultimately decided that he wanted to go ahead and proceed with the PEG tube today, but will keep options for comfort cares in mind in the future. I discussed the procedure for PEG tube placement along with risks of bleeding, infection, injury to other structures, heart problems lung problems etc. The son was in understanding of these risks. We will plan to proceed with PEG tube placement later this afternoon. Dr. Mansfield will be seeing the patient momentarily, is involved in assessment and plan and is available for supervision. DIONICIO TEIXEIRA PA-C FOR MD KAM BRAMBILA/carmen /[id number] d: 08/04/16 1229 t: 08/25/16 1811, CONSULTATION REPORT
--- NOTE | ~2016-07-17 | ER ---
PATIENT'S NAME: LASHAE LEVY [facility] AGE: 89 Y [address] ROOM: [place] [address] LOCATION: GICU ADMIT DATE: 07/17/2016 ER/Outpatient Report DISCHARGE DATE: FAMILY PHYSICIAN: Jase Pink MD ATTENDING PHYSICIAN: MARLIN MELTON Admission date and time documented in the medical record. I saw the patient at 1400 hours. CHIEF COMPLAINT: Decreased level of consciousness, altered mental status, shortness of breath, some respiratory distress. HISTORY OF PRESENT ILLNESS: The patient is an 89-year-old male, who has had a 2-day history of just gradual declining of his health. He has become more and more short of breath with some mild respiratory distress failure. He has had altered mental status with decreased level of consciousness, especially today. He came in kind of obtunded. He is DNR by record. We did start him on oxygen and up that to maintain his O2 sats above 90. He has a low-grade temperature of 99.7. He was tachypneic, tachycardic. He was in atrial fibrillation with rapid ventricular response. Blood pressure remained stable. Unable to give me any information because of being obtunded. We did initially try him on some oxygen per nasal cannula. Tried him on some BiPAP, eventually then went ahead and did do intubation. We did talk with the patient's son, who finally came, and even though he is a DNR, he wanted to go ahead and intubate and try life- saving measures. HOME MEDICATIONS: See attached medication list. ALLERGIES: PENICILLIN, SULFA, DEMEROL. SOCIAL HISTORY: Nonsmoker, nondrinker. SIGNIFICANT PAST MEDICAL HISTORY: From the chart; hypertension; atherosclerotic ischemic heart disease with coronary artery disease; MRSA positive; sacral decubital ulcer; dementia; compression fracture at L1; degenerative osteoarthritis; degenerative joint disease; remote tobacco abuse; chronic atrial fibrillation, no anticoagulation. OPERATIONS: PATIENT'S NAME: LASHAE LEVY [facility] AGE: 89 Y [address] ROOM: [place] [address] LOCATION: GICU ADMIT DATE: 07/17/2016 ER/Outpatient Report DISCHARGE DATE: FAMILY PHYSICIAN: Jase Pink MD ATTENDING PHYSICIAN: MARLIN MELTON A Bilateral total knee arthroplasty, 4-vessel coronary bypass graft. REVIEW OF SYSTEMS: Unable to get review of systems from the patient due to his unresponsive state and obtunded state. PHYSICAL EXAMINATION: VITAL SIGNS: Temperature 99.7 tympanic, pulse 180 and irregular, respirations 44, blood pressure 124/71, O2 saturation on 4 L of oxygen per minute per nasal cannula is 91%. HEAD: Normocephalic. No abrasion, contusion, laceration, swelling of the scalp or face. EYES: Extraocular muscles intact. PERRL. EARS: Clear TMs bilaterally. NOSE: Clear. THROAT: Clear. Mucous membranes are dry. NECK: No carotid bruits. No thyromegaly or cervical adenopathy. LUNGS: Decreased breath sounds diffusely. HEART: The patient is tachypneic. Heart tachy. Irregularly irregular pulses palpable. ABDOMEN: Soft, nondistended, nontender. Good bowel tones. No organomegaly or abnormal mass palpable. EXTREMITIES: Mottled. The left knee is warm to the touch, swollen. There are no open wounds. SKIN: Other than mottled is clear. NEURO: The patient is obtunded, unresponsive. Again, we did go ahead and intubate him at the request of the family, even though he is a DNR on his records. LABORATORY DATA AND X-RAYS: Chest x-ray shows no acute infiltrate or changes. We will review x-ray with the radiologist. EKG showed atrial fibrillation with rapid ventricular response. Laboratory: Arterial blood gas showed a pH of 7.4, pCO2 of 23, pO2 of 47 with an O2 saturation of 83%. Lactate was 3.2. White count was 19,400, 76 segs, 14 bands, 6 lymphs, 4 monos, hemoglobin is 11.3, hematocrit 39.2, platelet count 603,000. PTT was 27, pro-time was 12 with an INR 1.1. Uric acid was elevated 8.6. Urine showed packed field whites, 10-20 reds, 2-5 epithelial cells, few bacteria, 1+ amorphous material per high-powered field, positive nitrites on a cath specimen. The patient has a suprapubic catheter. D-dimer was elevated 7.37. Serum ammonia level was elevated 61. CMS was normal except for an elevated sodium 175, elevated chloride 143, normal potassium of 4, elevated glucose 142, elevated BUN of 77, elevated creatinine 2.0, low GFR of 32, magnesium was 2.8. Amylase and lipase were normal. CPK was 208, point- PATIENT'S NAME: LASHAE LEVY [facility] AGE: 89 Y [address] ROOM: [place] [address] LOCATION: [facility] ADMIT DATE: 07/17/2016 ER/Outpatient Report DISCHARGE DATE: FAMILY PHYSICIAN: Jase Pink MD ATTENDING PHYSICIAN: MARLIN MELTON of-care cardiac enzymes were normal. CRP was 24.10. ProBNP was 1105. Procalcitonin was 0.25. Clot tube was drawn. EMERGENCY DEPARTMENT COURSE: Again, we did intubate the patient. Gave him IV fluids. We will start him on IV meropenem. IMPRESSION: 1. Respiratory failure with hypoxia, tachypnea. 2. Sepsis, etiology uncertain at this time. 3. Urinary tract infection. 4. Hypernatremia. 5. Gout with elevated uric acid, and swollen, hot to the touch, left knee. 6. Chronic renal failure. 7. Atherosclerotic ischemic heart disease, coronary artery disease. 8. Hypertension. 9. Dementia. 10. Chronic atrial fibrillation with rapid ventricular response. Did start the patient on IV Cardizem bolus and drip. PLAN: Discussed the patient with Dr. Melton. The patient will be admitted to the hospital. The patient was intubated. He is on fluids. He is on Cardizem. He is on antibiotics. Accumulated critical care time 40 minutes. MD DALE NARAYANAN/modl /[id number] d: 07/18/16 0016 t: 07/18/16 1815, OUTPATIENT REPORT
--- NOTE | ~2016-07-17 | NDGEN ---
PATIENT'S NAME: LASHAE LEVY [facility] AGE: 89 Y [address] ROOM: [address] [address] LOCATION: [facility] ADMIT DATE: 07/17/2016 Neurodiagnostics DISCHARGE DATE: FAMILY PHYSICIAN: Jase Pink MD ATTENDING PHYSICIAN: MARLIN GONZALEZ PROCEDURE: ELECTROENCEPHALOGRAM DATE OF PROCEDURE: 07/27/2016 TIME: 2:03 p.m. INDICATION: This is an 89-year-old male patient who was in the ICU, came in with respiratory failure. At the time of the study, the patient was alert but was confused. DESCRIPTION: General background rhythm revealed a slow background rhythm seen in all the symmetrical bilateral leads. The background rhythm was mostly in the theta range and rarely did it approach normal rhythm of a near alpha range. The background rhythm was not interrupted by any abnormal epileptiform features and no seizures were recorded. IMPRESSION: General background slowing in this elderly male patient who presented with respiratory failure. The general background rhythm remained slow and was consistent throughout. This is an abnormal rhythm, likely due to either the patient's encephalopathic state or because of the patient being drowsy and being of the age of [age] years old. There were no seizures seen. MD RAFI CEE/ariesl /[id number] dtt: 08/11/16 1345 RAULITO JASON R. dtd: 07/27/162005
--- NOTE | ~2016-07-17 | OR ---
PATIENT'S NAME: LASHAE [facility]Y [facility] AGE: 89 Y [address] ROOM: [place] [address] LOCATION: GICU ADMIT DATE: 07/17/2016 OR/Procedure Report DISCHARGE DATE: FAMILY PHYSICIAN: Jase Pink MD ATTENDING PHYSICIAN: MARLIN GONZALEZ SURGEON: Ozzy Esposito MD DATE OF PROCEDURE: 07/17/2016 PROCEDURE NAME: Right internal jugular central venous catheter placement. INDICATION: Shock, acute respiratory failure, need for vasopressors. CONSENT: Consent was obtained from the patient's son after all the indications, risks, benefits, and alternatives were explained at length. The patient was intubated and sedated at the time of procedure. PROCEDURE SUMMARY: A time-out was performed. The patient's right neck region was prepped and draped in sterile fashion using chlorhexidine scrub. Anesthesia was achieved with 1% lidocaine. The right internal jugular vein was accessed under ultrasound guidance using a finder needle. Ultrasound images were not permanently documented. Venous blood was withdrawn and a guidewire was advanced through the needle. The needle was withdrawn and a small incision was made with a 10-blade scalpel. A dilator was advanced over the guidewire until appropriate dilation was obtained. The dilator was removed and a 7.5-Tongan central venous triple-lumen catheter was advanced over the guidewire and secured into place with 2 sutures at 17 cm. At the time of procedure completion, all ports aspirated and flushed properly. Postprocedure x-ray showed tip of the catheter within the superior vena cava. COMPLICATIONS: None. ESTIMATED BLOOD LOSS: Less than 5 mL. OZZY ESPOSITO MD RFN/modl /[id number] d: 07/18/16 0148 t: 07/18/16 0936, OPERATIVE SUMMARY
--- NOTE | ~2016-07-17 | OR ---
PATIENT'S NAME: LASHAE LEVY [facility] AGE: 89 Y [address] ROOM: [place] [address] LOCATION: [facility] ADMIT DATE: 07/17/2016 OR/Procedure Report DISCHARGE DATE: FAMILY PHYSICIAN: Jase Pink MD ATTENDING PHYSICIAN: MARLIN GONZALEZ SURGEON: Junior Ramos MD TAPE FOLDING MACHINE OPERATOR: DATE OF PROCEDURE: 08/04/2016 PREOPERATIVE DIAGNOSIS: Inability to swallow with decreased level of consciousness. POSTOPERATIVE DIAGNOSIS: Inability to swallow with decreased level of consciousness. PROCEDURE: Percutaneous endoscopic gastrostomy. FINDINGS: PEG was in good position at 2.5 cm to the skin. ESTIMATED BLOOD LOSS: Minimal. COMPLICATIONS: None. INDICATIONS: This patient is an 89-year-old male who had been hospitalized. He had decreased level of consciousness and had an inability to swallow. He has severe dementia as well. Family ultimately wished to proceed with a PEG tube. We discussed the PEG tube placement with the patient's family with risks, benefits, and alternatives, and they wished to proceed. DESCRIPTION OF PROCEDURE: The patient was taken to endoscopy suite. He was supine, given sedation, a bite block was positioned. A flexible endoscope was inserted in the esophageal lumen, this was advanced through the esophagus without difficulty. We advanced through the gastric lumen, no gastritis and the first and second portions of the duodenum without abnormalities. We withdrew back into the gastric lumen and maximally insufflated the stomach, a light reflex was able to be seen on the anterior abdominal wall and this did move in a one-to-one motion. Local anesthetic was then infiltrated in the left anterior abdominal wall. A transverse incision was created. The needle and introducer sheath were advanced into the gastric lumen. The needle was removed. The wire was then placed through the introducer sheath. The sheath was removed. A snare was placed through the flexible endoscope. The wire was snared, the wire was then brought out through the mouth. PEG tube was fed over the wire. The wire was again snared. The wire, PEG tube, and flexible endoscope were then all pulled back into the gastric lumen. The wire was released. A rubber bumper was placed onto the PEG tube as well as a clamp and PATIENT'S NAME: LASHAE LEVY [facility] AGE: 89 Y [address] ROOM: [place] [address] LOCATION: [facility] ADMIT DATE: 07/17/2016 OR/Procedure Report DISCHARGE DATE: FAMILY PHYSICIAN: Jase Pink MD ATTENDING PHYSICIAN: MARLIN GONZALEZ stopper. The PEG tube appeared to be in good position at 2.5 cm to the skin. The operative field appeared hemostatic. The flexible endoscope was removed. The PEG tube was placed to gravity. He tolerated this well. JUNIOR J MD WILLI RAMOS/carmen /[id number] d: 08/04/169 t: 08/05/16 1658, OPERATIVE SUMMARY
--- NOTE | ~2016-07-17 | CON ---
PATIENT'S NAME: LASHAE LEVY [facility] AGE: 89 Y [address] ROOM: [address] [address] LOCATION: [facility] ADMIT DATE: 07/17/2016 Consultation DISCHARGE DATE: FAMILY PHYSICIAN: Jase Pink MD ATTENDING PHYSICIAN: MARLIN GONZALEZ DATE OF CONSULTATION: 07/24/2016 REFERRING PHYSICIAN: Mili Duran MD LOCATION: ICU, [place]. This is a palliative care for goals of care and patient and family support. HISTORY OF PRESENT ILLNESS: This 89-year-old demented male was admitted on 07/17/2016 and from the [facility] with a history of advanced dementia, atrial fib, severe hypernatremia, and acute kidney injury. He has had a stage IV sacral decubitus ulcer that is being treated since last admission, nonhealing, failure to thrive. He was admitted to [facility] on 07/17/2016 with altered mental status, shortness of breath, and atrial fibrillation. Sodium was unmeasurable at greater than 175 and a creatinine of 2, baseline creatinine was 0.7 in April of this year, last admission. The patient was treated for hypernatremia. The patient previously had been on DO NOT RESUSCITATE/DO NOT INTUBATE, but son gave the okay to intubate and patient was intubated. The patient had been treated and was not progressing and was unable to weaned off ventilator. PAST MEDICAL HISTORY: Coronary artery disease, atrial fibrillation, not on long-term anticoagulation, history of TIA, history of stage IV sacral ulcer, protein- calorie malnutrition, advanced dementia, failure to thrive, bilateral knee replacement, history of infected knee prosthesis which he was seeing by Dr. Munguia on 07/22/2016 for a left total knee arthroplasty explant and placement of wound VAC. ALLERGIES: PENICILLIN, SULFA, MEPERIDINE, AND BACTRIM. SOCIAL HISTORY: The patient had been living in [place] and was brought back in April to be close to his son and was recently in the [facility]. No recent alcohol or alcohol abuse. FAMILY HISTORY: PATIENT'S NAME: LASHAE LEVY [facility] AGE: 89 Y [address]: [address] [address] LOCATION: [facility] ADMIT DATE: 07/17/2016 Consultation DISCHARGE DATE: FAMILY PHYSICIAN: Jase Pink MD ATTENDING PHYSICIAN: MARLIN GONZALEZ Not significant for diabetes, coronary artery disease, or kidney disease. REVIEW OF SYSTEMS: The patient is unresponsive. Chart was reviewed. It is negative except as mentioned in HPI. PHYSICAL EXAMINATION: GENERAL: This is an 89-year-old, frail, unresponsive, vented patient, in no acute distress. VITAL SIGNS: Temperature 97.5 tympanic, heart rate 88 and regular, respirations 35, on FiO2 of 30%, blood pressure 111/52, O2 saturation is 96%. PEEP of 5. He is 5 feet 7 inches and weighs 131 pounds with a BMI of 21.2. Last admission, his weight was 141 and BMI of 20.9. GENERAL: Unresponsive, nonsedated, and vented. SKIN: Warm and dry. Color pale. HEENT: Normocephalic and atraumatic. Sclerae are noninjected and anicteric. Conjunctivae pale pink. Mouth is pink and dry without exudate. LYMPH: No cervical adenopathy or thyromegaly. RESPIRATORY: Clear to auscultation bilaterally, regular, labored, vented. CARDIAC: S1, S2 without murmurs or bruits. ABDOMEN: Soft, nontender. Positive bowel tones. NEURO: Unresponsive, not following commands. MUSCULOSKELETAL: No deformities noted. IMPRESSION: 1. Respiratory failure. 2. Sepsis. 3. Failure to thrive. 4. Malnutrition. 5. Stage IV decubitus ulcer. PLAN: 1. Met with son, Chris, and , Vika, discussed overall condition. Son had talked with Dr. Apodaca about elevated sodium levels. Overall, son and have a good understanding of condition and poor prognosis. At current time phase, they are thinking about withdrawing from vent. They want to talk to with Dr. Duran later this afternoon before making decisions. Code status and advance directive, the patient is a DO NOT RESUSCITATE, okayed to vent. Discussed fears and concerns briefly, son wants to just be alone. Did offer pastoral care, son refused. We will continue to support patient and family. Total time was 45 minutes with 40 minutes for counseling and coordination of PATIENT'S NAME: LASHAE LEVY [facility] AGE: 89 Y [address] ROOM: [place] [address] LOCATION: [facility] ADMIT DATE: 07/17/2016 Consultation DISCHARGE DATE: FAMILY PHYSICIAN: Jase Pink MD ATTENDING PHYSICIAN: MARLIN GONZALEZ Thank you for allowing me to assist this patient and family. ABBEY URIAS NP FOR MD JENNIFER ODOM/carmen /[id number] d: 08/07/16 1640 t: 08/27/16 1213, CONSULTATION REPORT
[~2016-07-17 13:46] MED LIST: ARICEPT5 MG PO; ASPIRIN LO-DOSE81 MG PO; COLACE100 MG PO; DAKIN'S473 M1 TOP; DILTIAZEM 24HR120 M1 PO; DOXYCYCLINE100 MG PO; DRISDOL 5050000 UNIT PO; FOLIC ACID1 MG PO; KEFLEX500 MG PO; MAALOX LIQ UNIT30 ML PO; MILK OF MA400 MG/5 M PO; PRINIVIL OR ZES10 MG PO; SENNA8.6 MG PO; TYLENOL325 MG PO; VITAMIN B-121000 MCG PO; XANAX0.25 M1 PO
[2016-07-17 14:31] LABS: HEMATOCRIT 39.2 % (33.0-50.0); HEMOGLOBIN 11.3 g/dL (11.0-16.0); MCH 30.8 pg (27.0-34.0); MCHC 28.8 gm/dL (32.0-36.5); MPV 9.9 fl (9.4-12.4); RBC 3.67 M/uL (3.50-5.50)
[2016-07-17 14:32] LABS: MCV 106.8 fl (83.0-98.0); PLATELET COUNT 603 K/uL (150-450); RDW-CV 15.9 % (11.9-14.6); WBC 19.4 K/uL (4.0-11.0)
[2016-07-17 14:38] LABS: INR - (THERAPEUTIC) 1.1 (0.9-1.1); PTT 27 SECONDS (25-32)
[2016-07-17 14:38] LABS: BILIRUBIN URINE NEGATIVE (NEGATIVE); BLOOD URINE 250 /UL (NEGATIVE); COLOR URINE YELLOW (YELLOW); GLUCOSE URINE NEGATIVE (NEGATIVE); KETONE URINE NEGATIVE (NEGATIVE); LEUKOCYTES URINE 500 /UL (NEGATIVE); NITRITE URINE POSITIVE (NEGATIVE); PROTEIN URINE 100 mg/dL (NEGATIVE); TURBIDITY URINE 4+ (CLEAR); UROBILINOGEN URINE NORMAL (NORMAL)
[2016-07-17 14:46] LABS: WBC URINE PACKED FIELD #/HPF (NEGATIVE)
[2016-07-17 14:47] LABS: AMORPHOUS URINE 1+ (NEGATIVE); BACTERIA URINE FEW (NEGATIVE)
[2016-07-17 14:54] LABS: ALBUMIN 2.1 gm/dL (3.5-5.0); ALK PHOS 100 IU/L (33-138); ALT 34 IU/L (12-78); AST 21 IU/L (10-40); CALCIUM 9.5 mg/dL (8.5-10.5); CPK 208 IU/L (35-332); TOTAL PROTEIN 6.7 g/dL (6.0-8.4)
[2016-07-17 14:56] LABS: BLOOD UREA NITROGEN 77 mg/dL (6-24); CHLORIDE 143 mMol/L (96-110); CO2 17 mMol/L (22-32); ESTIMATED GFR (MDRD EQUATION) 32; SODIUM > 175 mMol/L (135-145); TOTAL BILIRUBIN 0.6 mg/dL (0.0-1.5)
[2016-07-17 14:57] LABS: MAGNESIUM 2.8 mg/dL (1.3-2.6)
[2016-07-17 15:18] LABS: BICARBONATE 14.2 mmol/L (18.0-23.0); PCO2 23 mmHg (35-45)
[2016-07-17 15:23] LABS: ABSOLUTE NEUTROPHIL CT (ANC) 17.5 K/uL (1.4-9.0); BANDED NEUTROPHIL # 2.7 K/uL (0.0-0.1); BANDED NEUTROPHILS % 14 %; LYMPHOCYTE # 1.2 K/uL (0.8-4.0); LYMPHOCYTE % 6 %; MONOCYTE # 0.8 K/uL (0.0-1.0); SEGMENTED NEUTROPHIL # 14.7 K/uL (1.4-9.0); SEGMENTED NEUTROPHIL % 76 %
[2016-07-17 15:25] LABS: PO2 47 mmHg (80-90)
[2016-07-17 15:26] LABS: LACTATE 3.2 mEq/L (0.50-1.60)
[2016-07-17] MEDS ORDERED: TYLENOL650 MG R (17:06)
--- NOTE | 2016-07-17 17:07 | NUR ---
Pt transfer from ER intubated, 7.5 ETT secured with ETAD at 22 teeth. Pt RR on arrival 50-60, ETCO2 14-16. Lung sounds diminished bases, slightly coarse uppers. Sxn moderate-large thick cream/yellow. Vent settings at this time A/C 16, TV 500, P 5, weaned Fio2 to 70%, will continue to wean as tolerated
[2016-07-17] MEDS ORDERED: TYLENOL EXTRA500 MG PO (17:08)
--- NOTE | 2016-07-17 17:51 | NUR ---
Significant Event: Sedated on Versed at 8 mg/hr. Withdraws x4, Pupils equal and sluggish. Does not follow commands. Robles catheter exchanged. OG to LIS. Sosam per protocol currently at 15 mg/hr. L) knee aspirated by Dr. Melton, Dr. Massey consulted. Dr. Hughes consulted for vent. Dr. Garcia consulted for Na level of > 175. Repositioned, pericares provided. Bilateral AC IV. Follow up:
[2016-07-17 18:29] LABS: HEMATOCRIT 38.4 % (33.0-50.0); HEMOGLOBIN 11.2 g/dL (11.0-16.0); MCH 30.9 pg (27.0-34.0); MCHC 29.2 gm/dL (32.0-36.5); MCV 105.8 fl (83.0-98.0); MPV 10.4 fl (9.4-12.4); RBC 3.63 M/uL (3.50-5.50); RDW-CV 15.7 % (11.9-14.6); WBC 15.3 K/uL (4.0-11.0)
[2016-07-17 18:30] LABS: PLATELET COUNT 465 K/uL (150-450)
[2016-07-17 18:49] LABS: ALK PHOS 88 IU/L (33-138); ALT 25 IU/L (12-78); AST 21 IU/L (10-40); CO2 18 mMol/L (22-32); ESTIMATED GFR (MDRD EQUATION) 32; POTASSIUM 4.3 mMol/L (3.7-5.1); TOTAL BILIRUBIN 0.5 mg/dL (0.0-1.5); TOTAL PROTEIN 6.9 g/dL (6.0-8.4)
[2016-07-17 18:58] LABS: ALBUMIN 1.8 gm/dL (3.5-5.0); BLOOD UREA NITROGEN 79 mg/dL (6-24); CHLORIDE 148 mMol/L (96-110); SODIUM > 175 mMol/L (135-145)
[2016-07-17 19:17] LABS: ABSOLUTE NEUTROPHIL CT (ANC) 13.9 K/uL (1.4-9.0); BANDED NEUTROPHIL # 1.7 K/uL (0.0-0.1); BANDED NEUTROPHILS % 11 %; LYMPHOCYTE # 0.8 K/uL (0.8-4.0); LYMPHOCYTE % 5 %; MONOCYTE # 0.5 K/uL (0.0-1.0); SEGMENTED NEUTROPHIL # 12.2 K/uL (1.4-9.0); SEGMENTED NEUTROPHIL % 80 %
[2016-07-18 04:10] LABS: BICARBONATE 15.1 mmol/L (18.0-23.0)
[2016-07-18 04:12] LABS: PCO2 30 mmHg (35-45)
[2016-07-18 04:13] LABS: PO2 88 mmHg (80-90)
--- NOTE | 2016-07-18 04:37 | NUR ---
Patient currently on the vent. FiO2 weaned down to 40% this shift. O2 sats were 97-99% throughout the shift. ETCO2 was 17-18. Breathsounds clear and diminished in the upper lobes bilaterally and diminished in the bases bilaterally. Suctioning small to moderate amounts of thick yellow secretions. Will continue to monitor patient.
[2016-07-18 04:50] LABS: CALCIUM 8.5 mg/dL (8.5-10.5); CREATININE 2.3 mg/dL (0.6-1.3); POTASSIUM 4.2 mMol/L (3.7-5.1); TOTAL BILIRUBIN 0.5 mg/dL (0.0-1.5); TOTAL PROTEIN 6.2 g/dL (6.0-8.4)
[2016-07-18 04:53] LABS: ALBUMIN 1.6 gm/dL (3.5-5.0); ANION GAP 16.2 (10.0-19.0)
[2016-07-18 05:13] LABS: HEMATOCRIT 31.4 % (33.0-50.0); HEMOGLOBIN 9.2 g/dL (11.0-16.0); MCH 31.3 pg (27.0-34.0); MCHC 29.3 gm/dL (32.0-36.5); MCV 106.8 fl (83.0-98.0); MPV 10.2 fl (9.4-12.4); PLATELET COUNT 482 K/uL (150-450); RBC 2.94 M/uL (3.50-5.50); RDW-CV 15.9 % (11.9-14.6); WBC 15.1 K/uL (4.0-11.0)
--- NOTE | 2016-07-18 05:25 | NUR ---
Significant Event:Patient is intubated/sedated. See neuro. HR's 80's-130's. Afib. Cardizem gtt weaned off and dig 500mcg given. Currently HR's 80-90. Jorge Luis at 2mcg/kg/min to keep maps greater than 65. Vaso started and weaned off during shift. 1+ pulses throughout. 1-2+ edema. Tmax 101.6, Treated with Tylenol. AC mode 40% fio2 Peep 5 TV 500 RR16. RR's 20's. O2 greater than 95%. Clear and diminished lung sounds throughout. Hypoactive BS. No BM during shift. OG LIS. Robles to DD with 168ML OUT, NO UOP SINCE 2300. AWARE. FLUID CALCULATIONS TO KEEP FLUID INTAKE AROUND 80ML/HR. SODIUM LEVEL AT 0500 171. All fluids must be made with D5 per DR. Garcia Follow up: Possible surgery for I&D of L)Knee.
[2016-07-18 05:47] LABS: BANDED NEUTROPHIL # 2.1 K/uL (0.0-0.1); BANDED NEUTROPHILS % 14 %; LYMPHOCYTE # 1.1 K/uL (0.8-4.0); LYMPHOCYTE % 7 %; MONOCYTE # 0.8 K/uL (0.0-1.0); SEGMENTED NEUTROPHIL # 10.9 K/uL (1.4-9.0); SEGMENTED NEUTROPHIL % 72 %
--- NOTE | 2016-07-18 09:37 | NUR ---
D/T ELEVATED SODIUM LEVEL REC NEPRO @ 45 ML/HR TO MEET PT NEEDS.
[2016-07-18 10:54] LABS: CALCIUM 8.9 mg/dL (8.5-10.5); CREATININE 2.2 mg/dL (0.6-1.3); PHOSPHORUS 4.3 mg/dL (2.5-4.9); POTASSIUM 4.2 mMol/L (3.7-5.1)
[2016-07-18 10:58] LABS: ALBUMIN 1.8 gm/dL (3.5-5.0); ANION GAP 19.2 (10.0-19.0)
[2016-07-18 11:58] LABS: BILIRUBIN URINE NEGATIVE (NEGATIVE); BLOOD URINE 250 /UL (NEGATIVE); COLOR URINE YELLOW (YELLOW); GLUCOSE URINE NEGATIVE (NEGATIVE); KETONE URINE NEGATIVE (NEGATIVE); LEUKOCYTES URINE 500 /UL (NEGATIVE); NITRITE URINE POSITIVE (NEGATIVE); PROTEIN URINE 100 mg/dL (NEGATIVE); TURBIDITY URINE 1+ (CLEAR); UROBILINOGEN URINE NORMAL (NORMAL)
[2016-07-18 12:23] LABS: EPITHELIAL URINE RARE #/HPF (NEGATIVE); WBC URINE 50-100 #/HPF (NEGATIVE)
[2016-07-18 12:24] LABS: BACTERIA URINE MANY (NEGATIVE); WBC CLUMPS URINE FEW (NEGATIVE)
[2016-07-18 14:09] LABS: CALCIUM 8.6 mg/dL (8.5-10.5); CREATININE 2.1 mg/dL (0.6-1.3); PHOSPHORUS 3.7 mg/dL (2.5-4.9); POTASSIUM 4.1 mMol/L (3.7-5.1)
[2016-07-18 14:11] LABS: ALBUMIN 1.9 gm/dL (3.5-5.0); ANION GAP 18.1 (10.0-19.0)
--- NOTE | 2016-07-18 16:32 | NUR ---
Significant Event:Withdraws to pain in all 4, does not open eyes, has a gag reflex. Continues with AFib. HR in 100's. Last dose of digoxin given was 1.14 digoxin level prior to giving. Vasopressin off at 1615. Jorge Luis decreased to 1.5 mc/kg/min, total of Vasopressors and Fentanyl to be 40 ml/h and NS decreased to 40 ml/h. Sodium at 1500 was 164 down from 171 at 0900. Fine crackles in bases and also diminished more on the right. RR 20's. FiO2 decreased to 30%. IV Albumin 25% given 1st dose of 6 doses, at 1500. NPO, no BM. UA sent. 20 ml of urine today. Dr Tijerina and Saul are aware. turned q2h to keep off coccyx. Skin tear dressing to R) elbow. minimal NG output of blackish green thin drainage. Dr Narvaez here to see and plans for OR when patient stable to removed left knee hardware. Ok to intubate, No compressions. Code status discussed with son today, he is updated at the bedside. Follow up:Quad strength Jorge Luis. Turn q2h.
--- NOTE | 2016-07-18 16:45 | NUR ---
PT VENTED ON 30% SATS 96-100%, BREATH SOUNDS SLIGHTLY COARSE AT TIMES BUT CLEAR SOME WITH SXN, SXN A SCANT AMOUNT OF CREAMY SPUTUM, ETCO2 16-20 MOST OF THE DAY, WILL CONTINUE TO WEAN PT TOLERATES AND MONITOR UNTIL FURTHER NOTICE
[2016-07-18 18:48] LABS: ALBUMIN 2.5 gm/dL (3.5-5.0); CALCIUM 8.4 mg/dL (8.5-10.5); PHOSPHORUS 2.9 mg/dL (2.5-4.9); POTASSIUM 3.7 mMol/L (3.7-5.1)
[2016-07-18 18:49] LABS: ANION GAP 12.7 (10.0-19.0)
[2016-07-18 21:55] LABS: ALBUMIN 2.7 gm/dL (3.5-5.0); CALCIUM 8.5 mg/dL (8.5-10.5); PHOSPHORUS 2.9 mg/dL (2.5-4.9); POTASSIUM 3.5 mMol/L (3.7-5.1)
[2016-07-18 21:56] LABS: ANION GAP 13.5 (10.0-19.0)
[2016-07-19 03:53] LABS: ALBUMIN 2.8 gm/dL (3.5-5.0); CALCIUM 8.9 mg/dL (8.5-10.5); CREATININE 1.9 mg/dL (0.6-1.3); POTASSIUM 3.6 mMol/L (3.7-5.1)
[2016-07-19 03:55] LABS: ANION GAP 11.6 (10.0-19.0)
[2016-07-19 04:05] LABS: BICARBONATE 17.3 mmol/L (18.0-23.0); PCO2 30 mmHg (35-45); PO2 78 mmHg (80-90)
[2016-07-19 05:49] LABS: ALBUMIN 2.8 gm/dL (3.5-5.0); CALCIUM 8.9 mg/dL (8.5-10.5); CREATININE 1.8 mg/dL (0.6-1.3); PHOSPHORUS 3.1 mg/dL (2.5-4.9); POTASSIUM 3.5 mMol/L (3.7-5.1)
[2016-07-19 05:52] LABS: ANION GAP 14.5 (10.0-19.0)
[2016-07-19 09:27] LABS: ALBUMIN 3.1 gm/dL (3.5-5.0); CREATININE 1.8 mg/dL (0.6-1.3); PHOSPHORUS 3.2 mg/dL (2.5-4.9); POTASSIUM 3.3 mMol/L (3.7-5.1)
[2016-07-19 09:29] LABS: ANION GAP 15.3 (10.0-19.0)
--- NOTE | 2016-07-19 17:05 | NUR ---
PT VENTED ON 30% SATS 98-100%, BREATH SOUNDS SLIGHTLY COARSE THROUGHOUT BUT CLEAR SOME WITH SXN, SXN A LARGE AMOUNT OF CREAMY SPUTUM, ETCO2 16-20 MOST OF THE DAY, PATIENT WAS TAKEN TO CT TODAY, WILL CONTINUE TO MONITOR UNTIL FURTHER NOTICE
--- NOTE | 2016-07-19 17:35 | NUR ---
Significant Event: NEURO: Versed held for 6 hours this shift to assess neuro status. After the 6 hours, patient did not open eyes to pain or voice, grimaced to sternal pressure, withdrew in all four extremities, overbreathed the ventilator in mid20s. Versed at 3 mg/hr. CT head today with no acute changes. CARDIO: Jorge Luis-synephrine off at 1330. MAPs in low 70s. Afebrile. LAB: Blood cultures positive for MRSA.
[2016-07-20 05:09] LABS: BICARBONATE 15.6 mmol/L (18.0-23.0); PCO2 24 mmHg (35-45); PO2 74 mmHg (80-90)
--- NOTE | 2016-07-20 05:20 | NUR ---
Significant Event: Patient remains intubated/sedated. See neuro. HR's 80's-90's. SBP 110's. Maps greater than 70. Afebrile. AC mode RR 16 Fio2 30% TV 550 Peep 5. Slightly coarse to clear and diminshed. O2 sats greater than 93%. No BM during shift. Fent given x1 for RR's in 30's. Higgins to DD with 250ml and inc around higgins x6. Am sodium 163. Follow up: L) knee I&d, Margaret
--- NOTE | 2016-07-20 05:42 | NUR ---
No changes made to vent settings this shift. FiO2 currently at 30% for O2 sats of 95-99%. ETCO2 was 17-18 throughout the shift. Breathsounds slightly coarse throughout bilaterally, and occasionally clear and diminished in the upper and diminished in the bases. Suctioning scant to moderate amounts of thick yellow secretions. Will continue to monitor patient.
[2016-07-20 08:30] LABS: ALBUMIN 2.6 gm/dL (3.5-5.0); CREATININE 1.4 mg/dL (0.6-1.3); PHOSPHORUS 2.5 mg/dL (2.5-4.9); POTASSIUM 3.1 mMol/L (3.7-5.1)
[2016-07-20 08:32] LABS: ANION GAP 13.1 (10.0-19.0)
--- NOTE | 2016-07-20 13:53 | NUR ---
Pt and son known to me from previous hospital stay. Reviewed chart and then introduced self and care management services to patient son at bedside. Pt on ventillator. Pt has been residing at [facility] since discharge from [facility] last hospital stay. Son reports has gotten along okay there, but would prefer he was in [place] at [facility] if we can find one due to distance. Told him we can have whatever SNF in [place] assess him when off ventillator to see if they can accept, otherwise will go back to [facility]. He voices understanding, just hoping can get to [facility] or somewhere so not so far for him to drive. Will follow.
--- NOTE | 2016-07-20 14:20 | NUR ---
A-NUTRITION CONSULT RECEIVED FOR TF RECOMMENDATIONS ON THE VENT; SEDATED. STAGE IV SACRAL PU. WANTS TO KEEP FLUIDS ~ 80 ML/HR. SEPTIC L)KNEE. OG IN PLACE. (+)BM LABS: NA 161, K+ 3.1, GLU 125, BUN 61, AGING BOX HAND 1.4, ALB 2.6. 07/17-CRP 24.10 MEDS: SUBLIMAZE, PREVACID DIET RX: NPO (DAY #3) EST NUTR NEEDS: [id number] KCALS AND 73-85 GM PROTEIN D-AT NUTRITION RISK W/DIFF. SWALLOWING R/T VENT SUPPORT AEB NPO STATUS, TF CONSULT. PT ALSO AT NUTRITION RISK W/INCREASED NUTRIENT NEEDS R/T HEALING AEB STAGE IV SACRAL PU. I-RECOMMEND 45 ML/HR NEPRO; THIS WILL PROVIDE 1944 KCALS, 87 GM PROTEIN, AND 785 ML FREE WATER) M/E-GOAL: TOLERANCE OF ENTERAL NUTRITION WHEN INITIATED 1)F/U TF, LABS, AND POC (2-3 DAYS) 2)ASSIST NEEDED
--- NOTE | 2016-07-20 16:49 | NUR ---
PT VENTED ON 30% SATS 96-100%, BREATH SOUNDS SLIGHLTY COARSE THROUGHOUT BUT CLEAR SOME WITH SXN, SXN A LARGE AMOUNT OF YELLOW SPUTUM, ETCO2 14-18 MOST OF THE DAY, WILL CONTINUE TO MONITOR UNTIL FURTHER NOTICE
--- NOTE | 2016-07-20 17:36 | NUR ---
SIGNIFICANT EVENT Pt remains intubated, vent on A/C, Fio2 30%.Versed at 4mg/hr, D5 with H2O at 80ml/hr continuous. Lung sounds are course, hypoactive bowel sounds. A-fib rates controlled . Mild 1+ edema in left ankle. Stage IV pressure ulcer to coccyx, dressing applied by WOC at 09:00. Catheter changed from 16 to 20 fr. R. IJ, triple lumen. Q4 Na checks, last check Na @ 161. Pupils are 2 and brisk, no reponse to pain, grimace with oral cares. ACHS.
--- NOTE | 2016-07-21 03:46 | NUR ---
Significant Event: Patient remains intubated/sedated. See Neuro. HR's 80'-100's. Afib. SBP 90's-110's. Maps greater than 65. Tmax 99.0. AC mode TV 550 RR 16 30% fio2. PIP's 20's. ETco2 14-17. Slightly coarse to clear and diminished. RR's 30-35 at times. Gave fent 25mcg q6hr, RR's returned to the 20's. TF started during shift, currently 30ml/hr, goal is 45ml/hr. No residuals 0300 assessment. Hypoactive BS. NO BM. Follow up: L) knee I&D, Monitor Sodium levls.
[2016-07-21 04:16] LABS: BICARBONATE 13.9 mmol/L (18.0-23.0); PCO2 23 mmHg (35-45); PO2 72 mmHg (80-90)
[2016-07-21 04:31] LABS: ALBUMIN 2.2 gm/dL (3.5-5.0); CALCIUM 8.9 mg/dL (8.5-10.5); CREATININE 1.3 mg/dL (0.6-1.3); PHOSPHORUS 2.9 mg/dL (2.5-4.9); POTASSIUM 3.6 mMol/L (3.7-5.1)
[2016-07-21 04:33] LABS: ANION GAP 15.6 (10.0-19.0)
[2016-07-21 04:53] LABS: HEMATOCRIT 25.9 % (33.0-50.0); RBC 2.54 M/uL (3.50-5.50); RDW-CV 15.2 % (11.9-14.6); WBC 11.6 K/uL (4.0-11.0)
[2016-07-21 04:56] LABS: HEMOGLOBIN 7.7 g/dL (11.0-16.0); MCH 30.3 pg (27.0-34.0); MCHC 29.7 gm/dL (32.0-36.5); PLATELET COUNT 244 K/uL (150-450)
--- NOTE | 2016-07-21 05:12 | NUR ---
PATIENT REMAINS ON AN FIO2 OF 30% WITH SATURATIONS >95%. ENTIDAL HAS BEEN IN THE TEENS THROUGH OUT THE SHIFT. SUCTIONING LARGE TO COPIOUS AMOUNTS OF THICK YELLOW. BREATH SOUNDS CORASE TO SLIGHTLY COARSE. WILL CONTINUE TO MONITOR.
[2016-07-21 05:38] LABS: ABSOLUTE NEUTROPHIL CT (ANC) 10.6 K/uL (1.4-9.0); BANDED NEUTROPHIL # 2.7 K/uL (0.0-0.1); BANDED NEUTROPHILS % 23 %; LYMPHOCYTE # 0.9 K/uL (0.8-4.0); LYMPHOCYTE % 8 %; MONOCYTE # 0.1 K/uL (0.0-1.0); SEGMENTED NEUTROPHIL # 7.9 K/uL (1.4-9.0); SEGMENTED NEUTROPHIL % 68 %
--- NOTE | 2016-07-21 16:52 | NUR ---
D: RESPIRATORY FAILURE I: V2OO, ALBUTEROL MDI R: BREATH SOUNDS COARSE TO SLIGHTLY COARSE THROUGHOUT, SXN- LARGE THICK YELLOW, ET TUBE SECURE, CUFF AT MINIMAL OCCLUSIVE PRESSURE, ETCO2 16-19 P: CONTINUE CURRENT THERAPY
--- NOTE | 2016-07-21 19:33 | NUR ---
Significant Event: Patient sedated. Pupils 2mm, brisk. Withdraws to pain x4. Does not open eyes to pain. Tele on- a fib. HR's 60's-70's. SBP 80's-120's. BP low this AM, NS 500 mL bolus given. 1 unit PRBC's given. Albumin started q 4 hours x6 doses. 2+ edema to hands. L) knee 3+ edema. Patient vented on 30% FiO2, PEEP of 5. Tachypneic at times. Lung sounds slightly coarse. Robles patent and draining yellow urine. OG tube was feeding Nepro at 40 mL, last residual >500 mL. Tube feeding stopped for 2 hours, night nurse with follow up. R) elbow abrasion. Stage IV pressure ulcer to coccyx. Dressing to be changed by WOC and PRN. R) IJ, triple lumen infusing D5W at 120 mL/hr and versed at 6. Follow up: q 4 hour NA levels.
[2016-07-22 04:20] LABS: BICARBONATE 15.5 mmol/L (18.0-23.0); PCO2 25 mmHg (35-45)
[2016-07-22 04:21] LABS: PO2 101 mmHg (80-90)
[2016-07-22 04:45] LABS: BASOPHIL % 0.1 %; EOSINOPHIL # 0.2 K/uL (0.0-0.5); EOSINOPHIL % 2.2 %; IMMATURE GRANULOCYTE # 0.1 K/uL (0.0-0.3); IMMATURE GRANULOCYTE % 1.2 %; LYMPHOCYTE # 0.6 K/uL (0.8-4.0); LYMPHOCYTE % 9.4 %; MONOCYTE # 0.3 K/uL (0.0-1.0); MONOCYTE % 3.7 %; NEUTROPHIL # (ANC) 5.7 K/uL (1.4-9.0); NEUTROPHIL % 83.4 %; NRBC % 0.9 /100WBC (0-0.00); RBC 2.38 M/uL (3.50-5.50); WBC 6.8 K/uL (4.0-11.0)
[2016-07-22 04:48] LABS: HEMOGLOBIN 7.3 g/dL (11.0-16.0); MCH 30.7 pg (27.0-34.0); MCHC 31.7 gm/dL (32.0-36.5); MCV 96.6 fl (83.0-98.0); RDW-CV 17.5 % (11.9-14.6)
[2016-07-22 04:49] LABS: PLATELET COUNT 168 K/uL (150-450)
[2016-07-22 05:08] LABS: ALBUMIN 3.1 gm/dL (3.5-5.0); CALCIUM 8.5 mg/dL (8.5-10.5); CREATININE 1.2 mg/dL (0.6-1.3); MAGNESIUM 2.3 mg/dL (1.3-2.6); PHOSPHORUS 3.3 mg/dL (2.5-4.9); POTASSIUM 3.2 mMol/L (3.7-5.1)
[2016-07-22 05:09] LABS: ANION GAP 15.2 (10.0-19.0)
--- NOTE | 2016-07-22 05:18 | NUR ---
D: RESP. FAILURE I: VENT, MDI R: PT. REMAINED ON VENT FIO2 30% WITH SATS 95-99%. ETCO2 15-18. BREATH SOUNDS ARE SLIGHTLY COARSE TO COARSE T/O AND CLEAR SOME WITH SUCTION. SUCTIONED A MODERATE TO LARGE AMOUNT OF THICK YELLOW SECRETIONS. P: WILL CONTINUE TO MONITOR UNTIL FURTHER NOTICE
--- NOTE | 2016-07-22 07:02 | NUR ---
PT REMAINS INTUBATED AND SEDATED ON 6 MG/HR OF VERSED. OPENING HIS EYES WITH TURNS AND PAIN STARTING AROUND 2300. STILL DOES NOT FOLLOW COMMANDS, STILL DOES NOT MOVE SPONTANEOUSLY. REMAINS AFIB ON MONITOR, RATES 60S, SHORT EPISODE OF IDIOVENTRICULAR RHYTHM LASTING LESS THAN 6 BEATS DURING ANY ONE TIME. REMAINS OFF PRESSORS THIS SHIFT, 25% ALBUMIN CONTINUED Q4H. SHORT PERIOD OF DESAT WITH DECREASE OF BREATH SOUNDS ON L) SIDE AT 0430. STAT CXR ORDERED. PT RESOLVED AFTER APPROX 20 MINUTES AND NUMEROUS PASSES WITH ETT SUCTIONING. PTS SATS MAINTAINED >90% ON 100% FI02. ORDER FOR REGLAN OBTAINED DUE TO HIGH RESIDUALS; BS BECAME ACTIVE AND TF RESTARTED. AT 0330 CHECK, RESIDUAL ABOVE 600, SO TF PLACED ON HOLD AGAIN. REGLAN CONTINUED. UOP MARGINAL THIS SHIFT. NO CHANGES WITH SKIN ASSESSMENT. ALL LINES REMAIN INTACT AND PATENT. HERNANDEZ GUERRERO RN
--- NOTE | 2016-07-22 10:53 | NUR ---
A - NUT F/U. VENT. SEDATED ON VERSED. REGLAN STARTED D/T ELEVATED TF RESIDUALS (>600 ML). BS ACTIVE. SURGERY TODAY FOR L) KNEE. PRBCS. STAGE IV PU COCCYX. 1+ EDEMA. DEMENTIA. SEPTIC L) KNEE. LABS: ACCUCHECK REAS, NA 149, K+ 3.2, GLU 181, BUN/CR 49/1.2, ALB 3.1, PREALB 5, 07/17 CRP 24.1, HGB/HCT 7.3/23.0 MEDS: REGLAN, PREVACID, D5W @ 200 ML/HR x 5 HRS, SSI DIET: NEPRO @ 45 ML/HR - ON HOLD FOR SURGERY. OG. PROVIDES 1944 KCAL, 87 G PRO, 785 ML FREE WATER. NEEDS: 3730-8486 KCAL, 73-85 G PRO D - DIFFICULTY SWALLOWING R/T VENT SUPPORT AEB NPO STATUS, NEED FOR ENTERAL NUTRITION. INCREASED PRO NEEDS R/T HEALING AEB STAGE IV PU. I - GOAL FOR ENTERAL NUTRITION TOLERANCE. M/E - WILL MONITOR TF AND SKIN. F/U IN 2-3 DAYS.
[2016-07-22 11:49] LABS: HEMATOCRIT 25.2 % (33.0-50.0); HEMOGLOBIN 8.1 g/dL (11.0-16.0)
--- NOTE | 2016-07-22 13:09 | NUR ---
Called Ainsley at [facility] in [place] where pt has been residing and gave her an update of pt condition. She reports his wound on his coccyx while still stage IV and fairly large, has made considerable improvement while at their facility from the way it was when he first came to them. Said up until last few days he has done well and made progress with them, talkative and pleasant man. They are glad to accept him back, I did let her know son asked me to check and see if any facilities in [place] that can accept him when ready for discharge due to distance to [place], but that if none can he will come back to them, she said thats fine with them to let her know. I then checked with their business office to see how many skilled days he has used, and pt only has 10 skilled days left, then will be self pay at [facility]. Pt son said pt has financial resources. Will follow.
--- NOTE | 2016-07-22 15:34 | NUR ---
SIGNIFICANT EVENT: PATIENT SEDATED WITH 5MG/HR OF VERSED. PATIENT GRIMACES TO PAIN BUT DOES NOT OPEN EYES. PUPILS EQUAL AND SLUGGISHLY AND AT TIMES BRISKLY REACTIVE. PATIENT DOES NOT NOD YES/NO TO ANY QUESTIONS. PATIENT DOES NOT MOVE ANY OF THE EXTREMITIES TO COMMANDS. PATIENT DOES NOT WITHDRAW TO PAIN. DR CARRASCO, DR. MAYER, AND DR RICO AWARE OF NEURO ASSESSMENT. PATIENT DOES HAVE A COUGH AND GAG REFLEX. PATIENT HAS BEEN IN AFIB RHYTHM, HR 60-80S. PULSES PALPABLE THROUGHOUT. EDEMA PRESENT. BP STABLE. PATIENT RECIEVED 1 UNIT OF PRB FOR HGB OF 7.3 PRIOR TO SURGERY. RECHECKED HGB WAS 8.1, MD ORDERED MORE PRBC TO BE GIVE, THIS WAS NOT ADMINISTERED PRIOR TO SURGERY, DR CARRASCO AWARE SURGERY STAFF AWARE AND REPORTED THEY WITH ADMINISTER IN OR. K AND MG REPLACED. AFEBRILE. PATIENT CONTINUES REQUIRE VENT SUPPORT, OVER BREATHS VENT SETTINGS FIO2 30%, TV 550, PEEP 5. ETCO2 15-17, MD AWARE. SPONT AND INDUCED COUGH, PRODUCTIVE. BOWEL SOUNDS ACTIVE, NO BM. OG TO SUCTION FOR SURGERY. ADEQUATE URINE OUTPUT PER SORIANO. NO NEW SKIN ISSUES NOTED. ISOLATION PRECAUTIONS CONTINUED. PATIENT DOWN TO OR AT 1255. FOLLOW UP: MONITOR POST OR
[2016-07-22 18:42] LABS: HEMATOCRIT 28.5 % (33.0-50.0); HEMOGLOBIN 8.9 g/dL (11.0-16.0)
[2016-07-22 18:50] LABS: ALBUMIN 2.9 gm/dL (3.5-5.0); CREATININE 1.2 mg/dL (0.6-1.3); MAGNESIUM 2.3 mg/dL (1.3-2.6); PHOSPHORUS 5.1 mg/dL (2.5-4.9)
[2016-07-22 18:51] LABS: ANION GAP 14.4 (10.0-19.0); POTASSIUM 4.4 mMol/L (3.7-5.1)
[2016-07-23 04:20] LABS: HEMATOCRIT 26.6 % (33.0-50.0); HEMOGLOBIN 8.5 g/dL (11.0-16.0); MPV 10.6 fl (9.4-12.4); PLATELET COUNT 157 K/uL (150-450); RBC 2.83 M/uL (3.50-5.50); RDW-CV 18.5 % (11.9-14.6); WBC 6.2 K/uL (4.0-11.0)
[2016-07-23 04:28] LABS: BICARBONATE 15.1 mmol/L (18.0-23.0); PCO2 25 mmHg (35-45); PO2 87 mmHg (80-90)
[2016-07-23 04:44] LABS: ALBUMIN 2.5 gm/dL (3.5-5.0); CALCIUM 8.1 mg/dL (8.5-10.5); CREATININE 1.2 mg/dL (0.6-1.3); PHOSPHORUS 3.5 mg/dL (2.5-4.9); POTASSIUM 3.6 mMol/L (3.7-5.1)
[2016-07-23 04:46] LABS: ANION GAP 15.6 (10.0-19.0)
--- NOTE | 2016-07-23 04:54 | NUR ---
PT OPENING EYES WITH REPOSITIONS, COUGHING, AND PAIN THIS SHIFT. WITHDRAW X4, PUPILS PINPOINT BUT REACTIVE, NO SPONTANEOUS MOVMENT NOTED. ANOTHER EPISODE OF MUCOUS PLUGGING NOTED, THIS TIME WITH SATS DECREASING TO 82%. SOME SECRETIONS SUCTIONED BUT REAMINS COARSE TO AUSCULTATION. OVERBREATHES VENT, VERSED DID NOT AFFECT RR. NEW FENTANYL IVP ORDER OBTAINED, APPEARS TO HELP PATIENT MORE THAN PRIOR ORDER OR VERSED GTT. ETCO2 REMAINS 14-17. BOARDERLINE HYPOTENSIVE AFTER FENTANYL IVP, RECOVERED QUICKLY. FLIPS BETWEEN SINUS RHYTHM AND A-FIB ON MONITOR. TF RESTARTED AT 10 ML/HR. RESIDUAL AT 0300 60 ML, INCREASED RATE TO 20 ML/HR. NO BM THIS SHIFT, UOP GOOD. FLUID BALANCE FOR SHIFT +153 ML. ALL LINES REMAIN INTACT AND PATENT, ALL IV TUBING, CENTRAL LINE CAPS, AND PRESSURE BAG TUBING CHANGED THIS SHIFT. HERNANDEZ GUERRERO RN
--- NOTE | 2016-07-23 05:06 | NUR ---
Mini BAL sent at beginning of shift. BrSs coarse, able to clear with suctioning of large amounts of thick, yellow secretions from ETT. RR has been increasing t/o the shift. At one point RR 40s, decreased BrSs on Left side, SpO2 down to 80%. Patient was then bag suctioned for a large amount of yellow secretions and showed improvement. Versed was started for a short time until a larger dose of fentanyl was obtained. RR now mid 30s, BrSs coarse again and unable to clear with suctioning. Pt has weak cough and not waking up to follow directions. Continue to monitor respiratory status.
[2016-07-23 05:34] LABS: ABSOLUTE NEUTROPHIL CT (ANC) 5.4 K/uL (1.4-9.0); BANDED NEUTROPHILS % 33 %; LYMPHOCYTE # 0.6 K/uL (0.8-4.0); LYMPHOCYTE % 9 %; MONOCYTE # 0.1 K/uL (0.0-1.0); SEGMENTED NEUTROPHIL # 3.4 K/uL (1.4-9.0); SEGMENTED NEUTROPHIL % 54 %
--- NOTE | 2016-07-23 17:09 | NUR ---
Significant Event: Continues on vent without sedation. Eyes open with repositioning and has slight withdraw to pain x4 extremites, but does not track or follow commands. Weak cough and gag. Tachypneic throughout the day. Other vital signs stable. Gastric residual increasing. Dulcolax given without results. Pt's son at bedside most of the day. Follow up: continue
[2016-07-23 17:13] LABS: CALCIUM 8.8 mg/dL (8.5-10.5); CREATININE 1.3 mg/dL (0.6-1.3); MAGNESIUM 2.1 mg/dL (1.3-2.6)
[2016-07-24 04:19] LABS: PCO2 25 mmHg (35-45); PO2 88 mmHg (80-90)
[2016-07-24 04:21] LABS: BICARBONATE 18.2 mmol/L (18.0-23.0)
--- NOTE | 2016-07-24 04:21 | NUR ---
Significant Event: Patient remains on ventilator without sedation. VSS. Opens eyes when turning, no commands. Withdraw x4 with painful stimuli, weak cough and gag. PRN fentanyl given for high RR and HR. MDs aware of HR/RR. High residuals with tube feeding. MD notified, on hold for the night. Will restart in AM. Robles with excellent UOP. Left knee kayleigh wrap on with immobilizer and wound vac. Wound vac running without complications, no drainage. Dressing to sacrum pressure ulcer, intact and dry. No family or visitors this shift. Turn q2h to keep pressure of sacrum. Cardio-a fib/sinus arrythmia. Put patient in dropet precautions- found MRSA lab in sputum. Follow up: Continue to monitor, discuss plan.
--- NOTE | 2016-07-24 04:46 | NUR ---
No vent changes made this shift, continues on FiO2 30%, Peep 5. EtCO2 16-17 this shift with RR 35-42. Pt continues to have high RR even after pain medication given. No sedation given, weak cough with suctioning of moderate amounts of yellow, thick secretions from ETT. Continue per plan of care.
[2016-07-24 04:51] LABS: ALBUMIN 2.3 gm/dL (3.5-5.0); ANION GAP 13.8 (10.0-19.0); CALCIUM 8.6 mg/dL (8.5-10.5); CREATININE 1.4 mg/dL (0.6-1.3); PHOSPHORUS 3.6 mg/dL (2.5-4.9); POTASSIUM 3.8 mMol/L (3.7-5.1)
[2016-07-24 04:59] LABS: BASOPHIL % 0.1 %; EOSINOPHIL # 0.1 K/uL (0.0-0.5); EOSINOPHIL % 1.1 %; HEMATOCRIT 28.2 % (33.0-50.0); HEMOGLOBIN 9.2 g/dL (11.0-16.0); IMMATURE GRANULOCYTE # 0.2 K/uL (0.0-0.3); IMMATURE GRANULOCYTE % 2.1 %; LYMPHOCYTE # 0.8 K/uL (0.8-4.0); LYMPHOCYTE % 9.4 %; MCH 29.9 pg (27.0-34.0); MCHC 32.6 gm/dL (32.0-36.5); MCV 91.6 fl (83.0-98.0); MONOCYTE # 0.6 K/uL (0.0-1.0); MONOCYTE % 6.8 %; MPV 10.6 fl (9.4-12.4); NEUTROPHIL % 80.5 %; NRBC % 0 /100WBC (0-0.00); PLATELET COUNT 167 K/uL (150-450); RBC 3.08 M/uL (3.50-5.50); RDW-CV 17.5 % (11.9-14.6); WBC 8.7 K/uL (4.0-11.0)
--- NOTE | 2016-07-24 11:21 | NUR ---
A-NUTRITION F/U ON VENT; NO SEDATION. PRN FENTANYL BEING GIVEN. L)KNEE HAS A WOUND VAC. PALLIATIVE CARE CONSULT. HIGH TF RESIDUALS LAST EVENING (500 ML, 300 ML); PER PROTOCOL, TF PLACED ON HOLD. RESTARTED THIS AM AT 20 ML/HR. REGLAN BEING GIVEN LABS: NA 142, K+ 3.8, GLU 129, BUN 144, GEOSPATIAL TECHNOLOGIST 1.4, ALB 2.3 MEDS: LACITNEX, SUBLIMAZE DIET RX: NPO; 20 ML/HR NEPRO CURRENTLY GOING EST NUTR NEEDS: 4598-9964 KCALS AND 73-85 GM PROTEIN D-AT NUTRITION RISK W/DIFF. SWALLOWING R/T VENT SUPPORT AEB NPO STATUS, NEED FOR ENTERAL NUTRITION AND 2)W/INCREASED NUTRIENT NEEDS R/T HEALING AEB STAGE IV SACRAL PRESSURE ULCER. I-GOAL FOR TF IS 45 ML/HR OF NEPRO; PROVIDING 1944 KCALS, 87 GM PROTEIN, AND 785 ML FREE WATER. M/E-GOAL: TF TOLERANCE WITHOUT DIFFICULTY 1)F/U TF AND POC IN 2-3 DAYS 2)ASSIST NEEDED
--- NOTE | 2016-07-24 13:35 | NUR ---
Significant Event:Opens eyes when turned. tracking??? no withdraw to pain on left side, minimal flexion with painful stimuli on the right side. NO gag reflex, off sedation since 07/22/16. Rare cough. Ventilator AC 30% FiO2. RT performed parameters. Dr Apodaca spoke with the son and his about the results. Lungs coarse throughout. Tube feeding restarted @ 0800 after a residual of 130 ml @ 0700, 100 ml water flush given at 1100, no residual at 1100. Large formed BM today. Bowel sounds hypoactive. Allevyn foam to coccyx is c/d/i. Wound vacuum to L) knee, with no drainage out. Palliative care consult, Kirsty here to visit with Chris hamilton. D5W rate decreased to 120 ml/h. IV Albumin given x 1. Follow up:Ortho plans to remove wound vac dressing on Wednesday with WOC nurse. Dr Duran here at 1530 to discuss plan of care with Chris hamilton.
[2016-07-25 04:53] LABS: ALBUMIN 2.9 gm/dL (3.5-5.0); ANION GAP 13.6 (10.0-19.0); CALCIUM 9.3 mg/dL (8.5-10.5); CREATININE 1.2 mg/dL (0.6-1.3); MAGNESIUM 2.4 mg/dL (1.3-2.6); PHOSPHORUS 4.1 mg/dL (2.5-4.9); POTASSIUM 3.6 mMol/L (3.7-5.1)
[2016-07-25 04:56] LABS: BASOPHIL % 0.3 %; EOSINOPHIL # 0.2 K/uL (0.0-0.5); HEMATOCRIT 24.6 % (33.0-50.0); IMMATURE GRANULOCYTE # 0.2 K/uL (0.0-0.3); IMMATURE GRANULOCYTE % 2.1 %; LYMPHOCYTE # 0.9 K/uL (0.8-4.0); LYMPHOCYTE % 11.2 %; MCH 29.9 pg (27.0-34.0); MCHC 32.5 gm/dL (32.0-36.5); MCV 91.8 fl (83.0-98.0); MONOCYTE # 0.6 K/uL (0.0-1.0); MONOCYTE % 7.3 %; MPV 10.4 fl (9.4-12.4); NEUTROPHIL # (ANC) 5.9 K/uL (1.4-9.0); NEUTROPHIL % 76.1 %; NRBC % 0 /100WBC (0-0.00); PLATELET COUNT 169 K/uL (150-450); RBC 2.68 M/uL (3.50-5.50); RDW-CV 16.9 % (11.9-14.6); WBC 7.7 K/uL (4.0-11.0)
--- NOTE | 2016-07-25 05:08 | NUR ---
Significant Event: Pt will open his eyes to pain and when turned. Pupils are equal and reactive. Withdraws in all four extremities. Does not talk, nod or follow directions. Pt was taken back off of comfort cares. Heart rates have been in the 80-100's in A.Fib. Imobilizer to the L) leg. Robles in place with good urine output. No BM this shift. Follow up: Continue to monitor
--- NOTE | 2016-07-25 17:26 | NUR ---
SIGNIFICANT EVENT: PATIENT REMAINS ON 4L OF OXYGEN N/C WITH INTERMITTENT SUCTIONING. PATIENT WAS EXTUBATED ON 07-24-2016. TITRATIONS OF 02 BETWEEN 4-6L. PATIENT OPENS EYES AT TIMES, SLIGHT WITHDRAWAL TO PAIN. DOBHOFF RUNNING AT 40ML/HR WITH A GOAL OF 45, NO RESIDUALS. URINE OUTPUT IS STEADY. R. TRIPPLE LUMEN IJ IS PATENT WITH CONTINUOUS D5 AT 100ML/HR. LUNG SOUNDS ARE CLEAR AND DIMINISHED, HYPOACTIVE BOWEL SOUNDS, HEART RATES IN THE 70-90S. SPLINT TO LEFT LEG, IS ELEVATED. HEPARIN PROPHYLAXIS ADDED TODAY. STAGE IV PRESSURE ULCER TO COCCXY COVERED BY WOC, TO BE REPLACED WEDNESDAY. MRSA IN BLOOD, SPUTUM, AND URINE.
[2016-07-26 04:57] LABS: ALBUMIN 2.4 gm/dL (3.5-5.0); ANION GAP 11.5 (10.0-19.0); CALCIUM 9.1 mg/dL (8.5-10.5); CREATININE 1.2 mg/dL (0.6-1.3); POTASSIUM 3.5 mMol/L (3.7-5.1); TOTAL PROTEIN 5.8 g/dL (6.0-8.4)
[2016-07-26 04:58] LABS: BASOPHIL % 0.2 %; EOSINOPHIL # 0.2 K/uL (0.0-0.5); EOSINOPHIL % 2.5 %; HEMATOCRIT 26.1 % (33.0-50.0); HEMOGLOBIN 8.6 g/dL (11.0-16.0); IMMATURE GRANULOCYTE # 0.2 K/uL (0.0-0.3); IMMATURE GRANULOCYTE % 1.8 %; LYMPHOCYTE # 0.9 K/uL (0.8-4.0); LYMPHOCYTE % 9.9 %; MCH 30.2 pg (27.0-34.0); MCV 91.6 fl (83.0-98.0); MONOCYTE # 0.7 K/uL (0.0-1.0); MONOCYTE % 7.9 %; MPV 10.2 fl (9.4-12.4); NEUTROPHIL # (ANC) 6.9 K/uL (1.4-9.0); NEUTROPHIL % 77.7 %; NRBC % 0 /100WBC (0-0.00); RBC 2.85 M/uL (3.50-5.50); RDW-CV 16.6 % (11.9-14.6); WBC 8.9 K/uL (4.0-11.0)
[2016-07-26 04:59] LABS: PLATELET COUNT 208 K/uL (150-450)
[2016-07-26 05:01] LABS: TOTAL BILIRUBIN 0.8 mg/dL (0.0-1.5)
--- NOTE | 2016-07-26 05:08 | NUR ---
Significant Event: Pt opens eyes to pain/movement, does not track. Does not follow commands. Withdraws in all four extremities. Pupils are equal and reactive. Dobhof in place. Residuals have been minimal, so water flushes have been increased to 250 ml. HR and BP have been stable this shift. On 4L of O2 via NC. Large amount of thick oral secretion suctioned this shift. Immobilizer, kayleigh wrap, and wound vac to the L) leg. Robles in place with large urine outputs. No BM this shift. R) tripple IJ in place. Follow up: Continue to monitor
--- NOTE | 2016-07-26 11:44 | NUR ---
Significant Event:PT WILL OPEN EYES TO VOICE OR STIMULI. DOES NOT TRACK. PERRLA. WITHDRAW TO PAIN IN ALL 4 EXTREMITIES. NO SPONTANOUS MOVEMENT WITNESSED. NO GAG REFLEX. SBP 130-140'S. +2 EDEMA TO EXTREMITIES. ON 4L NC. SUCTIONING OUT THICK WHITE SPUTUM. DOBHOFF TO LEFT NARE INFUSING NEPRO AT 45 WITH 250ML H2O FLUSHES. NO RESIDUELS. SORIANO DRAINING YELLOW URINE. DRSG TO COCCYX. TO BE CHANGE BY WOC ON WEDNESDAY. L) LEG DRSG ON WITH IMMOBILIZER. R) IJ RUNNING. IN ISOLATION FOR MRSA IN URINE, SPUTUM, AND BLOOD. WOUND VAC TO LEFT LEG. Follow up:MONITOR LOC. FREQUENT SUCTION AND ORAL CARE.
[2016-07-27 05:03] LABS: ALBUMIN 2.4 gm/dL (3.5-5.0); ALK PHOS 119 IU/L (33-138); ALT 76 IU/L (12-78); ANION GAP 13.3 (10.0-19.0); AST 73 IU/L (10-40); BASOPHIL % 0.2 %; CALCIUM 9.3 mg/dL (8.5-10.5); CHLORIDE 104 mMol/L (96-110); CO2 26 mMol/L (22-32); CREATININE 1.1 mg/dL (0.6-1.3); EOSINOPHIL # 0.3 K/uL (0.0-0.5); EOSINOPHIL % 2.4 %; ESTIMATED GFR (MDRD EQUATION) > 60; HEMATOCRIT 28.8 % (33.0-50.0); HEMOGLOBIN 9.3 g/dL (11.0-16.0); IMMATURE GRANULOCYTE # 0.2 K/uL (0.0-0.3); IMMATURE GRANULOCYTE % 1.6 %; MCH 29.5 pg (27.0-34.0); MCHC 32.3 gm/dL (32.0-36.5); MCV 91.4 fl (83.0-98.0); MONOCYTE # 0.9 K/uL (0.0-1.0); MONOCYTE % 8.2 %; MPV 10.2 fl (9.4-12.4); NEUTROPHIL # (ANC) 8.3 K/uL (1.4-9.0); NEUTROPHIL % 78.6 %; NRBC % 0 /100WBC (0-0.00); PLATELET COUNT 241 K/uL (150-450); POTASSIUM 3.3 mMol/L (3.7-5.1); RBC 3.15 M/uL (3.50-5.50); SODIUM 140 mMol/L (135-145); TOTAL BILIRUBIN 0.8 mg/dL (0.0-1.5); WBC 10.6 K/uL (4.0-11.0)
[2016-07-27 05:04] LABS: BLOOD UREA NITROGEN 53 mg/dL (6-24)
--- NOTE | 2016-07-27 05:31 | NUR ---
Significant Event: Pt opens eyes, but does not track. Does make some spontaneous movements with his upper extremities, withdraws in the lower. On Room air. Wet cough, suction large amounts of white thick secretions. Immobilizer to the L) leg. Dobhof in place with tube feeding running at goal. Dressing to the ulcer on back was saturated, and was dirty and removed and covered with an ABD. 1 small BM this shift. Robles in place with good urine output. L) tripple lumen IJ in place. Follow up: Wound vac removal?
--- NOTE | 2016-07-27 11:17 | NUR ---
A-NUTRITION F/U 07/24-COMPASSIONATELY EXTUBATED. 07/25 DOBHOFF PLACED. WOUND VAC REMOVED ABD SOFT; (+)BS; (+)BM. MINIMAL RESIDUALS FROM TF ON ROOM AIR. OPENS EYES; DOES NOT TRACK LABS: NA 140, K+ 3.3, GLU 138, BUN 53, LITERACY SPECIALIST 1.1, ALB 2.4 DIET RX: NPO; NEPRO AT 40 ML/HR W250 ML H2O FLUSH [id number]. PT APPEARS TO BE TOLERATING TF WITHOUT DIFFICULTY. EST NUTR NEEDS: 0304-2482 KCALS AND 73-85 GM PROTEIN D-AT NUTRTION RISK W/DIFF. SWALLOWING R/T ALTERED LOC AEB NEED FOR ENTERAL FEEDING. I-GOAL RATE FOR NEPRO IS 45 ML/HR; THIS WILL PROVIDE 1944 KCALS, 87 GM PROTEIN, AND 785 ML FREE H20 +FLUSHES M/E-GOAL: TF TO MEET 100% OF PT'S NUTRIENT NEEDS AND CONTINUED TOLERANCE OF TF. 1)F/U TF AND POC IN 3-4 DAYS 2)ASSIST NEEDED
--- NOTE | 2016-07-27 14:44 | NUR ---
Gave update of pt condition to HERIBERTO Schmitz at [facility]. Will continue to follow.
--- NOTE | 2016-07-27 17:31 | NUR ---
Significant Event: Patient doesn't follow commands. At times will open eyes to sounds. Withdraws in extremities X4, pupils are equal and reactive. SBP have been one teens-130's, MAP's 80's-90's, HR 70's-80's. Patient is on RA with o2 sats low to mid 90's. Lung sounds are slightly coarse to clear and diminished. Robles had 2450ml out. Follow up:
[2016-07-28 05:08] LABS: INR - (THERAPEUTIC) 1.11 (0.92-1.07); PROTIME 11.7 SECONDS (9.8-11.4)
[2016-07-28 05:12] LABS: ALBUMIN 2.3 gm/dL (3.5-5.0); ALK PHOS 111 IU/L (33-138); ALT 69 IU/L (12-78); ANION GAP 10.2 (10.0-19.0); AST 58 IU/L (10-40); BLOOD UREA NITROGEN 50 mg/dL (6-24); CALCIUM 9.6 mg/dL (8.5-10.5); CHLORIDE 105 mMol/L (96-110); CO2 25 mMol/L (22-32); ESTIMATED GFR (MDRD EQUATION) > 60; POTASSIUM 4.2 mMol/L (3.7-5.1); SODIUM 136 mMol/L (135-145); TOTAL BILIRUBIN 0.9 mg/dL (0.0-1.5); TOTAL PROTEIN 5.9 g/dL (6.0-8.4)
[2016-07-28 05:33] LABS: BASOPHIL % 0.3 %; EOSINOPHIL # 0.3 K/uL (0.0-0.5); EOSINOPHIL % 3.4 %; HEMATOCRIT 27.4 % (33.0-50.0); HEMOGLOBIN 8.7 g/dL (11.0-16.0); IMMATURE GRANULOCYTE # 0.1 K/uL (0.0-0.3); IMMATURE GRANULOCYTE % 1.1 %; LYMPHOCYTE # 1.3 K/uL (0.8-4.0); LYMPHOCYTE % 12.8 %; MCH 29.6 pg (27.0-34.0); MCHC 31.8 gm/dL (32.0-36.5); MCV 93.2 fl (83.0-98.0); MONOCYTE # 0.9 K/uL (0.0-1.0); MONOCYTE % 9.1 %; MPV 10.1 fl (9.4-12.4); NEUTROPHIL # (ANC) 7.3 K/uL (1.4-9.0); NEUTROPHIL % 73.3 %; NRBC % 0 /100WBC (0-0.00); PLATELET COUNT 249 K/uL (150-450); RBC 2.94 M/uL (3.50-5.50); RDW-CV 15.8 % (11.9-14.6); WBC 9.9 K/uL (4.0-11.0)
--- NOTE | 2016-07-28 06:53 | NUR ---
Significant Event: OPENS EYES AT TIMES. DOES NOT FOLLOW COMMANDS, NON-VERBAL. RIGID WITH CARES. HR 60-80'S. SBP 130'S. TMAX 99.7. UP TO 4L O2. WEAK COUGH, ORAL SUCTIONED FREQUENTLY. LUNG SOUNDS CLEAR/DIM. BM X2. TF CONTINUES AT 45ML/HR PER DOBHOFF. ADEQUATE UOP FROM SORIANO. D5W AT 80ML/HR VIA R) ARM PICC. BATH COMPLETE. Follow up: CONTINUE.
--- NOTE | 2016-07-28 16:46 | NUR ---
patient transferred from ICU. patient opens eyes to voice, doesn't follow commands. edilia slow at 3 mm. withdraws to pain. doesn't follow or track nurse. lungs coarse, copious amt of sputum, RT does NT suction, oral suction for thick sputum.TF at 45 ml/hr, water flush 250 ml q4h([id number]). higgins patent. allevyn to coccyx ulcer. right leg kayleigh wrap d/i, knee immobilizer in place. picc line right arm. accuchecks q6h, doesn't clear secretions, needs to be suctioned frequently. right hand edema, bilateral pedal edema L>R. o2 at 2l/min.
--- NOTE | 2016-07-28 17:14 | NUR ---
Significant Event: No significant change in assessment. Requires aggressive oral care and deep suctioning to maintain clear airway. Other vital signs stable. Tolerating tube feed at goal rate without complications. Transferred to [address] [place] [id number] this afternoon. Pt's son notified of transfer. Follow up: continue
--- NOTE | 2016-07-28 18:15 | NUR ---
PATIENTS SON SUCTIONING HIS FATHER. WHEN ASKED HIM TO CALL US, HE SAID" THEY ALLOWED ME TO SUCTION HIM IN ICU, SO I CAN HERE".
--- NOTE | 2016-07-29 05:10 | NUR ---
Pt on comfort cares. VS at 1900 stable. On 2L 02. NPO diet; tube feeding. Pt on isolation for MRSA. Responds to voice and painful stimuli. Unable to assess sensation on lower extremity. Poor eye tracking. Edema on lower extremities and right uper arm/hand. Suction as needed.
[2016-07-29 06:25] LABS: HEMATOCRIT 27.3 % (33.0-50.0); HEMOGLOBIN 8.6 g/dL (11.0-16.0)
[2016-07-29 06:38] LABS: ALBUMIN 2.3 gm/dL (3.5-5.0); ANION GAP 11.8 (10.0-19.0); CALCIUM 9.4 mg/dL (8.5-10.5); CHLORIDE 101 mMol/L (96-110); CO2 28 mMol/L (22-32); ESTIMATED GFR (MDRD EQUATION) > 60; MAGNESIUM 2.4 mg/dL (1.3-2.6); PHOSPHORUS 3.4 mg/dL (2.5-4.9); POTASSIUM 3.8 mMol/L (3.7-5.1); SODIUM 137 mMol/L (135-145)
[2016-07-29 06:40] LABS: BLOOD UREA NITROGEN 51 mg/dL (6-24)
--- NOTE | 2016-07-29 17:43 | NUR ---
Significant Event: No verbal response. Response to painful stimuli. Repositioned q2h. O2 at 2L per nasal cannula. Lungs coarse. Weak cough. PICC to rt upper arm. Dobbhoff tube feeding at 45ml/h with 250ml water flush q4h. Lester wrap dressing and immobilizer to left leg. Allevyn dressing to open area to coccyx. Robles patent. Follow up:
[2016-07-30 04:10] LABS: ALBUMIN 2.2 gm/dL (3.5-5.0); BLOOD UREA NITROGEN 49 mg/dL (6-24); CALCIUM 9.3 mg/dL (8.5-10.5); CHLORIDE 103 mMol/L (96-110); CO2 27 mMol/L (22-32); ESTIMATED GFR (MDRD EQUATION) > 60; MAGNESIUM 2.4 mg/dL (1.8-2.6); PHOSPHORUS 3.4 mg/dL (2.5-4.9); SODIUM 137 mMol/L (135-145)
--- NOTE | 2016-07-30 04:54 | NUR ---
Significant Event: Dressing to L) leg with brace. PICC to R) arm with good blood return. On 2 L of oxygen nasal cannula. NPO. Has a higgins catheter. Accu checks every 6 hours. R) elbow scab. Dressing on lower back changed. Dobhoff with tube feeding at 45 ml/hour. Flushes every 4 hours. Lungs slightly coarse. Repositioned. Isolation for MRSA. Follow up:
--- NOTE | 2016-07-30 12:58 | NUR ---
Significant Event: Responds to voice. No verbal response. Reposition Q 2hrs. 2L/O2. Weak cough. Suction PRN. Gets breathing treatments Q4hrs. PICC JEAN MARIE with 30ml/hr NS running. Dobbhoff tube feeding at 45ml/hr with 250ml water flush Q4hrs. Robles intact with goo output. Acewrap dressing to L) leg with immobilizer on at all times. Accuchecks Q6hrs. WOC removed dressing to open area on coccyx. Isolation for MRSA. Follow up:
--- NOTE | 2016-07-30 13:14 | NUR ---
A - NUT F/U. NONVERBAL. STAGE IV PU COCCYX. 1-2+ EDEMA. LABS: ACCUCHECK WNL-REAS, GLU 115, BUN/CR 49/2.2, HGB/HCT 8.6/27.3. MEDS: VANCO, REGLAN, ARICEPT, SSI, PREVACID. DIET: NEPRO @ 45 ML/HR W/ 250 ML WATER Q4 HRS VIA DOBHOFF. NO RESIDUALS. PROVIDES 1944 KCAL, 87 G PRO, 785 ML FREE WATER (+FLUSH). NEEDS: [id number] KCAL, 73-85 G PRO D - DIFFICULTY SWALLOWING R/T NEURO STATUS AEB NEED FOR ENTERAL NUTRITION. I - GOAL FOR CONTINUED ENTERAL NUTRITION TOLERANCE. M/E - WILL MONITOR TF F/U IN 4-6 DAYS.
[2016-07-31 04:08] LABS: BLOOD UREA NITROGEN 50 mg/dL (6-24); CALCIUM 9.5 mg/dL (8.5-10.5); CHLORIDE 101 mMol/L (96-110); CO2 29 mMol/L (22-32); ESTIMATED GFR (MDRD EQUATION) > 60; SODIUM 139 mMol/L (135-145)
--- NOTE | 2016-07-31 05:11 | NUR ---
Significant Event: The Patient is Alert, non-verbal. Withdrawls to painful stimuli and is rigid. Lungs are slightly coarse. VSS. On room air. Robles draining. PICC to the right arm saline locked. Left leg dressing and immobilizer. Stage 4 pressure sore to his coccyx open to air. Up with Full Lift, Strict q2h Turns, aloe vesta applied. Pupils are 2 and sluggish. Dobhoff Left nare. Cont. Tube feed at 45ml/hr with q4h 250ml H20 Flushes. Accu checks Q6h. Abrasions to bilateral arms. Incontinent of bowel. Follow up:
--- NOTE | 2016-07-31 14:54 | NUR ---
Spoke to patients sonChris, on the phone. They are hoping to get patient moved to a [facility]. Possibly [facility]. We will visit more about this when patient is closer to discharge. [facility] may be the only option depending on level of need.
--- NOTE | 2016-07-31 16:53 | NUR ---
Significant Event: Pt is alert, non verbal. Will squeeze hands to command. L) dobhoff, No residuals. Infusing @ 45/hr. Water flush increased to 300 ml q 4 hr. Acewrap/brace L) knee. CSM WNL, unable to determine tough sensation. NGUYEN @2. Lung sounds slightly coarse. Has productive cough. Reposition q 2 hr. Robles intact with good output. accuchecks q 6 hr. Isolation for MRSA. Has pressure sore to coccyx, open to air. Aloe vesta applied. Follow up:
--- NOTE | 2016-08-01 04:43 | NUR ---
Significant Event: Patient is alert. Moves all four extremities to painful stimuli. Nonverbal. VSS on 1L of O2. HRs in the 70s-80s. SBPs in the 120s-140s. Max temp of 99.5. Lung sounds coarse/slightly coarse throughout. Left leg dressing and immobilizer intact. Full lift. Reposition q2 hours. Stage 4 pressure ulcer to coccyx, open to air. Aloe vesta applied. Incontinent of stool x 2 this shift. Robles intact. 1250 mls out. Dophoff to left nare with continuous feeding running at 45 ml/hr with q4 hour 300 ml water flushes. PICC to right upper arm, saline locked. Receiving intermittent IV antibiotics. Q6 hour accuchecks. In contact isolation for MRSA. Tylenol given for looks of discomfort last at 0300. Follow up:
[2016-08-01 06:18] LABS: ANION GAP 10.8 (10.0-19.0); BLOOD UREA NITROGEN 47 mg/dL (6-24); CALCIUM 9.2 mg/dL (8.5-10.5); CHLORIDE 101 mMol/L (96-110); CO2 29 mMol/L (22-32); CREATININE 0.9 mg/dL (0.6-1.3); ESTIMATED GFR (MDRD EQUATION) > 60; POTASSIUM 3.8 mMol/L (3.7-5.1); SODIUM 137 mMol/L (135-145)
[2016-08-01 06:36] LABS: BASOPHIL % 0.4 %; EOSINOPHIL # 0.4 K/uL (0.0-0.5); EOSINOPHIL % 5.4 %; HEMATOCRIT 25.2 % (33.0-50.0); IMMATURE GRANULOCYTE % 0.5 %; LYMPHOCYTE # 1.3 K/uL (0.8-4.0); LYMPHOCYTE % 17.8 %; MCH 29.9 pg (27.0-34.0); MCHC 31.7 gm/dL (32.0-36.5); MONOCYTE # 0.9 K/uL (0.0-1.0); MONOCYTE % 12.7 %; MPV 9.5 fl (9.4-12.4); NEUTROPHIL # (ANC) 4.7 K/uL (1.4-9.0); NEUTROPHIL % 63.2 %; NRBC % 0 /100WBC (0-0.00); RBC 2.68 M/uL (3.50-5.50); RDW-CV 15.8 % (11.9-14.6); WBC 7.4 K/uL (4.0-11.0)
[2016-08-01 06:38] LABS: PLATELET COUNT 318 K/uL (150-450)
--- NOTE | 2016-08-01 17:11 | NUR ---
Significant Event: alert, non-verbal/mumbles incoherently. turn q2h, aloe vesta to stage 4 on coccyx, higgins patent, R)PICC patent, o2 1l/nc, lungs slight coarse throughtout, oral suctioned frequently, pulled out Dobhoff - Dobhoff replaced -Awaiting xray to confirm placement. does not follow commands, Drsg/Immobilizer to LLE, Heels floated, MRSA isolation - NPO - Nepro 45ml/hr w/ 300ml H2O flush q4h. Follow up: Accuchecks q6h nurse draw in a.m.
[2016-08-02 05:52] LABS: BASOPHIL # 0.1 K/uL (0.0-0.2); BASOPHIL % 0.8 %; EOSINOPHIL # 0.4 K/uL (0.0-0.5); HEMATOCRIT 25.7 % (33.0-50.0); HEMOGLOBIN 8.2 g/dL (11.0-16.0); IMMATURE GRANULOCYTE % 0.6 %; LYMPHOCYTE # 1.4 K/uL (0.8-4.0); LYMPHOCYTE % 20.9 %; MCH 29.9 pg (27.0-34.0); MCHC 31.9 gm/dL (32.0-36.5); MCV 93.8 fl (83.0-98.0); MONOCYTE # 0.9 K/uL (0.0-1.0); MONOCYTE % 14.4 %; MPV 9.1 fl (9.4-12.4); NEUTROPHIL # (ANC) 3.7 K/uL (1.4-9.0); NEUTROPHIL % 57.3 %; NRBC % 0 /100WBC (0-0.00); PLATELET COUNT 336 K/uL (150-450); RBC 2.74 M/uL (3.50-5.50); RDW-CV 15.3 % (11.9-14.6); WBC 6.5 K/uL (4.0-11.0)
[2016-08-02 05:54] LABS: BLOOD UREA NITROGEN 44 mg/dL (6-24); CALCIUM 9.5 mg/dL (8.5-10.5); CHLORIDE 104 mMol/L (96-110); CO2 29 mMol/L (22-32); CREATININE 0.9 mg/dL (0.6-1.3); ESTIMATED GFR (MDRD EQUATION) > 60; SODIUM 138 mMol/L (135-145)
--- NOTE | 2016-08-02 07:19 | NUR ---
Significant Event: Patient is alert. Nonverbal/mumbles incoherently at times. Doesn't follow commands. Withdraws to painful stimuli in all four extremities. VSS on room air. HRs in the 70s-80s. SBPs in the 120s-150s. Afebrile. Full lift. Reposition q2 hours. Stage 4 pressure ulcer to coccyx. Left nare dobhoff occluded, dobhoff pulled per MD order. MD also ordered to hold PO meds and to address replacement of dobhoff/and or PEG tube placement with AM hospitalist. NPO. Right upper arm PICC, saline locked. Q6 hour accuchecks. Dressing and immobilizer to left intact. In contact isolation for MRSA. Follow up:
--- NOTE | 2016-08-02 17:46 | NUR ---
Significant Event: alert/non-verbal. occas. mumbles incoherently, turn q2h, stage 4 to coccxy, Dobhoff replaced- Nepro continuous 45ml/hr, 300 H2O flush q4h, NPO -oral cares given, family @ bedside this afternoon, lungs diminished, higgins patent, R)PICC patent, does not follow commands, MRSA isolation, drsg D/I to LLE with L)knee immobilizer on, heels floated. Follow up: plan for possible PEG tube this week
--- NOTE | 2016-08-03 05:18 | NUR ---
Significant Event:pt alert however very sleepy during shift. easily awakes. pt turned every 2 hours due to stage 4 wound to coccyx.area cleaned and barrier applied. pt non verbal however does open eyes to verbal. also moans to painful stimuli. dohhoff running at 45ml/hr with 300ml flushes every 4 hours. right upper arm picc flushes good with good blood return. immobilizer to left knee in place. bilateral heels floated. arms also elevated. pt very frail. q 6 hour accuchecks.in contact/droplet isolation for mrsa in the sputum and in his knee wound. Follow up:
--- NOTE | 2016-08-03 10:02 | NUR ---
Received consult to look for skilled stay for patient for total of 6 weeks of IV Vancomycin. Currently IV Vancomycin 1 gram q 36 hours. Will be challenging to find SNF that has 24 hour RN coverage to give q 36 hours, will talk with physician/pharmacy to see if will be appropriate to alter dosing to a q 12 or q 24 hour schedule. Also, dobhoff in and physician progress note says physician wants to talk with son about longer term plan for peg tube vs palliative care/hospice. Pt currently has about 10 days of skilled benefit left on his Medicare policy then will be self pay at [facility], although PT/OT and IV antibx can be billed as outpt to his Medicare plan. I left voicemail for son Brady to call me back to discuss dc planning as got referral this weekend to look for skilled placement to accommodate IV antibx for several more weeks and if he is coming in to see his dad sometime today. Will follow.
--- NOTE | 2016-08-03 10:53 | NUR ---
A - NUT F/U. NON-VERBAL. 1-2+ EDEMA. ADULT FTT. LABS: ACCUCHECK WNL-REAS, BUN/CR 44/0.9, ALB 2.2, HGB/HCT 8.2/25.7. MEDS: VANCO, REGLAN, ARICEPT, SSI, PREVACID. STAGE IV COCCYX PU. DIET: NEPRO @ 45 ML/HR W/ 300 ML WATER Q4 HRS VIA PEG. NO RESIDUALS. PROVIDES 1944 KCAL, 87 G PRO, 785 ML FREE WATER (+FLUSH). NEEDS: 8022-1352 KCAL, 73-85 G PRO D - DIFFICULTY SWALLOWING R/T NEURO STATUS AEB NEED FOR ENTERAL NUTRITION. INCREASED PRO NEEDS R/T HEALING AEB STAGE IV PU. I - GOAL FOR ENTERAL NUTRITION TOLERANCE. GOAL FOR IMPROVED SKIN INTEGRITY. REC CHANGING TF TO PROMOTE NOW THAT NA LEVELS ARE WNL. THIS WILL INCREASE PRO INTAKE FOR SKIN HEALING. REC PROMOTE @ 80 ML/HR W/ 75 ML WATER Q6 HRS TO PROVIDE 1920 KCAL, 120 G PRO, 1611 ML FREE WATER (+FLUSH). REC PEG PLACEMENT FOR LONG-TERM ENTERAL NUTRITION. M/E - WILL MONITOR POC, TF, SKIN F/U IN 3-5 DAYS.
--- NOTE | 2016-08-03 11:01 | NUR ---
REC CHANGING TF TO PROMOTE NOW THAT NA+ LEVELS ARE WNL. PROMOTE WILL INCREASE PRO INTAKE FOR SKIN HEALING. REC PROMOTE @ 80 ML/HR W/ 75 ML WATER Q6 HRS.
--- NOTE | 2016-08-03 12:45 | NUR ---
Pt son Brady called me back, discussed with him need for several more weeks IV antibiotics and will look for skilled placement for that. Discussed that I am not sure if [facility] in [place] can accommodate doing IV antibx, and not sure if [facility] where pt has been can do that, will check with them. If not, may end up looking further out of town in [place]. Discussed that I again checked pt benefits and has 10-11 skilled days left on his Medicare policy, then will be self pay whereever he is for room and board and medications, but that Medicare will cover IV antibx therapy and physical therapy as an outpt while on those services whereever he is. He voices understanding and that he will be okay with whatever plan we need to do to get his dad what he needs. Discussed with him physician will be wanting to talk with him about his dads need for feeding tube, and option, as can't go to SNF with dobhoff and if they think won't be able to swallow and eat for awhile a longer term solution is needed. He said he visits his dad after he gets off work late afternoon, but can come anytime if he needs to, or physician can call him to discuss whatever needs discussed, just let him know. Will pass that along.
--- NOTE | 2016-08-03 14:26 | NUR ---
Called all 4 SNF in [place]. They only can do IV antibx q 24, and right now [facility] can't accept more with IV antibx need as have a couple people they are doing that for right now, and Garcia is working on food service worker hospital and couldn't do it several weeks, maybe a few days to a week for someone. Called Ainsley at [facility] where pt was prior to admission here. She can do IV antibx q 12, but can't do q 36 hour. Gave her update of pt condition including dobhoff tube feeding (SNF can't accept with dobhoff, would need peg) and that I talked with son about skilled benefit ending soon and will be self pay. Will update her as we get closer to getting pt ready for dc.
--- NOTE | 2016-08-03 17:48 | NUR ---
Significant Event: Patient nonverbal. Responds to pain. Contact isolation for MRSA. On room air. NPO, Dobhoff running at 55ml/hr, goal is 80ml/hr, 75ml H2O flush q6hr. Robles. Stage 4 to coccyx, open to air. Turn q2hr. HOB >30. L) knee immobilizer on. R) arm PICC. Accu q6hr. Follow up: Hold tube feeding tonight at midnight. Possible PEG tube tomorrow or Wednesday.
[2016-08-04 04:45] LABS: ANION GAP 12.2 (10.0-19.0); BLOOD UREA NITROGEN 40 mg/dL (6-24); CALCIUM 9.1 mg/dL (8.5-10.5); CHLORIDE 103 mMol/L (96-110); CO2 29 mMol/L (22-32); ESTIMATED GFR (MDRD EQUATION) > 60; POTASSIUM 4.2 mMol/L (3.7-5.1); SODIUM 140 mMol/L (135-145)
[2016-08-04 05:36] LABS: BASOPHIL % 0.4 %; EOSINOPHIL # 0.4 K/uL (0.0-0.5); HEMATOCRIT 25.7 % (33.0-50.0); HEMOGLOBIN 8.1 g/dL (11.0-16.0); IMMATURE GRANULOCYTE % 0.4 %; LYMPHOCYTE # 1.6 K/uL (0.8-4.0); LYMPHOCYTE % 24.3 %; MCHC 31.5 gm/dL (32.0-36.5); MCV 95.2 fl (83.0-98.0); MONOCYTE % 14.8 %; MPV 9.4 fl (9.4-12.4); NEUTROPHIL # (ANC) 3.6 K/uL (1.4-9.0); NEUTROPHIL % 54.1 %; NRBC % 0 /100WBC (0-0.00); PLATELET COUNT 370 K/uL (150-450); RDW-CV 15.4 % (11.9-14.6); WBC 6.7 K/uL (4.0-11.0)
--- NOTE | 2016-08-04 05:44 | NUR ---
Significant Event: Opens eyes to voice. Spontaneous movement noted to bilateral upper extremities. Rigid and contracted throughout all extremities. Withdraws to pain x 4 extremities with delayed response to LLE. Tracks appropriately. At times will say "ouch" when applying nailbed pressure but unable to say name or follow commands at this time. Systolic 130-150's, HR 70's, 1+ edema to L) hand. L.S. clear and diminished in upper lobes, diminished in lower lobes, crackles at times but clears with cough on RA. B.S. active, last BM 08/03. Open pressure ulcer to cocyx, turn Q2H. Robles intact draining nayely urine without complications, adequate urine output this shift. RUE PICC SL'd, receiving intermittent Atbx. Dobhoff L) nare at 73cm, no residual for this shift, NPO since midnoc for possible PEG Tube placement this AM., (patient had previous goal rate of 80mL/hr for tube feeds, I accomplished 75mL/hr with 75mL H2O flushes Q6Hrs with no residuals. LLE immobilizer present. Follow up: Neuro checks, re-orient as needed, turn Q2Hr, consult general surgery this AM regarding PEG Tube placement for nutritional supplementation.
--- NOTE | 2016-08-04 14:41 | NUR ---
I did call [facility] and spoke with Maria Del Rosario. I explained the plan is for the peg tube. I faxed the referral and she will come over tomorrow. I did also fax updates to Ainsley at [facility].
--- NOTE | 2016-08-04 15:19 | NUR ---
Significant Event:PT WILL OPEN EYES TO VOICE. SOMETIMES TRACKS. DOES NOT FOLLOW COMMANDS. BEGAN TO MUMBLE SOME DURING SECOND ASSESSMENT OTHERWISE DID NOT MAKE CLEAR WORDS. LUNG SOUNDS AND CLEAR AND DIMINISHED. EDEMA NOTED THROUGHOUT WHOLE BODY. PRESSURE SORE TO COCCYX OPEN TO AIR. GROIN IS ESCORIATED AND RED. Q6H ACCUCHECKS. HAS BEEN NPO SINCE MIDNIGHT. WENT DOWN AROUND 1240 FOR PEG PLACEMENT HAS NOT RETURNED YET. SON WAS UNSURE ABOUT HAVING IT PLACED AND WANTED TO SPEAK WITH MD. IMMOBILIZER TO LEFT LEG. PICC SL'D. DOBHOFF IN LEFT NARE. Follow up:NEURO
[2016-08-05 04:44] LABS: ANION GAP 10.2 (10.0-19.0); BLOOD UREA NITROGEN 33 mg/dL (6-24); CALCIUM 9.2 mg/dL (8.5-10.5); CHLORIDE 104 mMol/L (96-110); CO2 27 mMol/L (22-32); ESTIMATED GFR (MDRD EQUATION) > 60; POTASSIUM 4.2 mMol/L (3.7-5.1); SODIUM 137 mMol/L (135-145)
[2016-08-05 04:59] LABS: BASOPHIL % 0.6 %; EOSINOPHIL # 0.4 K/uL (0.0-0.5); EOSINOPHIL % 5.1 %; HEMATOCRIT 25.8 % (33.0-50.0); HEMOGLOBIN 8.2 g/dL (11.0-16.0); IMMATURE GRANULOCYTE % 0.6 %; LYMPHOCYTE # 1.5 K/uL (0.8-4.0); LYMPHOCYTE % 22.5 %; MCH 30.4 pg (27.0-34.0); MCHC 31.8 gm/dL (32.0-36.5); MCV 95.6 fl (83.0-98.0); MONOCYTE # 1.2 K/uL (0.0-1.0); MONOCYTE % 17.4 %; MPV 8.7 fl (9.4-12.4); NEUTROPHIL # (ANC) 3.7 K/uL (1.4-9.0); NEUTROPHIL % 53.8 %; NRBC % 0 /100WBC (0-0.00); PLATELET COUNT 386 K/uL (150-450); RDW-CV 15.4 % (11.9-14.6); WBC 6.8 K/uL (4.0-11.0)
--- NOTE | 2016-08-05 05:05 | NUR ---
Significant Event: Opens eyes when called by name. Unsure if patient tracks appropriately, able to move eyes slightly from mid-line to sides of peripheral ward. PERRLA 2mm brisk. Aphasic, will say "ouch" when applying painful stimuli to extremities. Withdraws appropriately, delayed response to LLE. Systolic 120-130's, HR 70-80's, 1+ generalized edema to lower extremities. L.S. clear and diminished in upper lobes, diminished in lower lobes with occasional crackles that clears with suctioning and coughing on 1L via O2. B.S. active, 0mL out of PEG tube for drain, clamped 30 minutes after medications given. Robles intact, sediment and concentrated 750mL out this shift. Immobilizer present to LLE. Rigid and contracted, stiff when repositioning and grimaces/guards. Highest temp 99.2 tympanic, did give Tylenol last noc. PICC R) upper arm SL'd receiving intermittent Vancomycin. Turn Q2H, Accucecks Q6Hr. Pressure ulcer to cocyx open to air, purulent drainage in small amounts. Full lift for transfers. Follow up: Nutritional guidance for meals, turn Q2H, Accuchecks Q6Hr, neuro checks. Looking at possible SNF placement in future.
--- NOTE | 2016-08-05 12:03 | NUR ---
Talked with patient son on phone, he called me this morning for update. I let him know Nikki faxed referral to [facility], they were the only SNF in [place] that was willing to assess to see if they can meet his needs, not a guarantee they will accept. If they can't accept, Ainsley at [facility] said they are glad to have him come back there. He is fine with that. Waiting to hear back from [facility]. I called Ainsley and let her know pt has a peg tube now and what tube feeding he is on (Nepro), let her know [facility] is assessing, and we will let her know when we know more. She is fine with that.
--- NOTE | 2016-08-05 16:19 | NUR ---
Maria Del Rosario called from [facility] and they decline to accept pt.
--- NOTE | 2016-08-05 17:46 | NUR ---
Significant Event: Opens eyes to voice. Withdraws to pain. Sometimes tracks. Rigid and contracted throughout all extremities. SPBs 110s to 100s. Lungs slighty coarse, diminished lower lobes. Nasal canula 1L all day until this afternoon, stats dropped to mid 80s, increased oxyen to 3L, stats in mid 90s now. Spontaneous cough. PEG tube placed yesterday. Promote running at 20ml/hr. Goal is 80ml/hr. 75ml water flush q6h. Robles. Red area to R) groin, scheduled nystatin powder. L) leg immobilizer. Stage 4 to coccyx, open to air per wound care. R) PICC saline locked. Follow up: Accu q6h. Increase tube feeds as tolerated. Reposition q2h. Placement.
--- NOTE | 2016-08-06 07:48 | NUR ---
Significant Event: PATIENT IS ALERT TO VOICE. VSS. NON-VERBAL. PERRLA. ROOM AIR - 2L PER NC TO KEEP STATS > 90%. PROMOTE TF-PEG TUBE-GOAL IS 80 ML/HR AT 60 NOW. 0 FOR RESIDUAL-75 ML FLUSH Q6H. 2A FULL LIFT- TURN SIDE TO SIDE. PICC IN RIGHT UPPER ARM-SL'D. STAGE IV PRESSURE ULCER TO COCCYX. IMMOBILIZER TO LEFT LEG TO STAY ON. NPO-ORAL CARES. ACCU CHECKS Q6H. Follow up: TURN Q2H. MONITOR.
--- NOTE | 2016-08-06 11:24 | NUR ---
Called and left voicemail for Ainsley at [facility] on her cell [phone] to let her know [facility] declined to accept pt and to call me to touch base with when she can get tube feeding product ordered and also IV Vancomycin ordered to safely readmit pt back to their facility. I also faxed her updated MAR with Vancomycin dose, last few shift summaries by nurses, and dieticians note on 07/03 with tube feeding product information and goals. Also faxed her H&P, consults and operative reports from this hospital stay and most recent labwork, vital signs and I&O information to review. . Called son Chris on his cell number and left him a voicemail to call me back to touch base about dc planning, that [facility] assessed and then declined to accept, and that I have a call out to Ainsley in [place] about when they can readmit his dad to their care for skilled stay.
--- NOTE | 2016-08-06 12:11 | NUR ---
A - NUT F/U. PEG PLACED. TF CHANGE FROM NEPRO TO PROMOTE PER RECS. NONVERBAL. 1+ EDEMA. ADULT FTT. STAGE IV COCCYX PU. 07/17 ADMIT WT 135#, CURRENT WT 153# - UP 18# (13%) - BENEFICIAL D/T FTT AND WOUND. LABS: ACCUCHECK WNL-REAS, BUN/CR 33/1.0, ALB 2.2, HGB/HCT 8.2/25.8 MEDS: REGLAN, ARICEPT, SSI, PREVACID, VANCO DIET: PROMOTE @ 80 ML/HR W/ 75 ML WATER Q6 HRS VIA PEG. MIN RESIDUALS. PROVIDES 1920 KCAL, 120 G PRO, 1611 ML FREE WATER (+FLUSH) NEEDS: 1838-8929 KCAL, 83-97 G PRO ( 1.2-1.4 G/KG) D - INCREASED PRO NEEDS R/T HEALING AEB STAGE IV COCCYX PU. DIFFICULTY SWALLOWING R/T NEUROMUSCULAR DYSFUNCTION AEB NEED FOR LONG-TERM ENTERAL NUTRITION. I - GOAL FOR CONTINUED ENTERAL NUTRITION TOLERANCE. GOAL FOR SKIN HEALING. M/E - WILL MONITOR TF AND SKIN F/U IN 4-5 DAYS.
--- NOTE | 2016-08-06 17:20 | NUR ---
Ainsley from [facility] called and said it likely will work out that they can accept tomorrow if they can get the tube feeding product worked out. Let her know Kirit had sent me a note saying they can substitute their 1.0 or 1.2 product until Promote comes in. Ainsley will check with her negotiator sales. Told A[facility]ley [facility] is following tomorrow and Nikki will talk with her in the morning to see if it will work out. Will go by ambulance. I called Dr Parra and let him know. I called son Chris on his cell phone and left him a voicemail as well and told him customer care professional will call him tomorrow when we know for sure.
--- NOTE | 2016-08-06 17:31 | NUR ---
Significant Event: Patient not oriented. Non-verbal. Alert to voice, withdraws to pain. SBPs 160s to 120s this shift. Lungs clear/dim, on 2L O2 NC. Tube feed running Promote at goal of 80ml/hr, H2O 75ml flush q6h. No residuals with medical imaging tech. NPO. Accu checks DC'ed this shift. Follow up: Turn q2h. Possible discharge Wednesday.
--- NOTE | 2016-08-07 02:52 | NUR ---
Significant Event: Patient is alert. VSS. Non-verbal. Does not follow commands. PERRLA. Flexion w/d -x4. Sinus rhythm with 1st degree AVB. 2L of O2 per nasal cannula. Promote TF at 80 ml/hr via peg tube-75 ml flushes q6h. 2A full lift. NPO. Right upper arm PICC-sl'd when not running antibiotics. Immobilizer to left leg. Stage IV pressure ulcer to coccyx. Turn q2h. Follow up: Elli on Wednesday.
--- NOTE | 2016-08-07 08:21 | NUR ---
SPOKE W/ DIETITIAN FROM [facility] ABOUT TF PRODUCT. THEY DO NOT HAVE PROMOTE ON HAND. THEY DO HAVE PRO-STAT WHICH CAN BE FLUSHED DOWN THE PEG IN ADDITION TO THE TF FORMULA. DIETITIAN THERE WILL PROVIDE RECS FOR WHEN PT RETURNS BASED ON THEIR FORMULARY. [facility] DIETITIAN CONTACT INFO PROVIDED AND [facility] DIETITIAN TO CALL IF ANY OTHER QUESTIONS ARISE.
[2016-08-07 09:27] LABS: ANION GAP 10.8 (10.0-19.0); BLOOD UREA NITROGEN 32 mg/dL (6-24); CHLORIDE 114 mMol/L (96-110); CO2 23 mMol/L (22-32); CREATININE 0.8 mg/dL (0.6-1.3); ESTIMATED GFR (MDRD EQUATION) > 60; POTASSIUM 3.8 mMol/L (3.7-5.1); SODIUM 144 mMol/L (135-145)
[2016-08-07 09:31] LABS: CALCIUM 6.8 mg/dL (8.5-10.5)
--- NOTE | 2016-08-07 11:00 | NUR ---
I did update Dr Melton that pt can not go back to [facility] till Wednesday. I updated the nursing staff and family is not at bedside.
--- NOTE | 2016-08-07 16:12 | NUR ---
Significant Events: Unable to assess orientation. Opens eyes to sound/ pain. incomprehensible sounds. PERRLA. Pulses palpable. Oral cares frequently. Lungs are diminished in the bases. 1L O2. Tachpnea. 2+ edema to left hand- elevate. Scattered bruising. Stage 4 pressure ulcer to coccyx- moisture barrier. Skin tear to right elbow- healthing. Left knee had dressing change and immobolizer. Please call Dr. Munguia Wednesday before discharge to take sutures out. BS hypoactive. PEG tube with tf running at 80ml/hr, NPO. Folwy in place. Begin vanco in AM Follow up: Call Dr. Munguia prior to discharge on Wednesday to take sutures out. Begin Vanco tomorrow- see chart
--- NOTE | 2016-08-08 02:05 | NUR ---
Significant Event: Alert. Opens eyes to sound. Does not make much for sounds. Does not follow commands. Able to withdrawl from painful stimuli. Light reflex present in eyes. Up full lift. L) hand edema. L) foot pulse thready. On 1L of O2 sats in mid 90s. PEG tube running Promo at 80ml/hr with 75ml flush q6hrs. Robles good urine output. Knee immobilizer on L) knee C/D/I. Stage 4 ulcer to coccics. Single lumen PICC to R) arm SL. Follow up: Elli [facility] on Wednesday
--- NOTE | 2016-08-08 18:58 | NUR ---
Significant Event: opens eyes spontaneously. mainly nonverbal. does moan with movement/repositioning. does not follow commands. room air. tele with NSR. NPO. Peg tube with ordered feedings/flushes. repositions side to side. Has pressure ulcer top of coccyx open to air. higgins cath patent. DO NOT REMOVE DUE TO PRESSURE ULCER. contact isolation for MRSA in left knee. kayleigh wrap and leg immobilizer to left knee. edema to left lower extremity. 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 discharge plan- return to [facility] Wednesday.
--- NOTE | 2016-08-09 05:25 | NUR ---
Significant Event: Patient nonverbal. Unable to assess for orientation. Does not track. Responds to painful stimuli. LLE will sometimes respond to painful stimuli and sometimes not. Upper extremeties contracted. Very stiff and rigid. VSS. Afebrile. Lungs clear and dim throughout on room air. No cough noted. PEG tube intact to abdomen. Tube feeding, Promote running 80 ml/hr with 75 ml/hr flushes q6. Robles catheter intact. Do not D/C. Total lift. Stage IV pressure ulcer to coccyx, leave open to air. MRSA to the left knee. KRISTY wrap and immobilizer intact to LLE. PICC to JEAN MARIE. S/S of pain with movement, scheduled ultram given. Turn q2. Follow up: Elli on Wednesday.
[2016-08-09 08:53] LABS: ALBUMIN 2.3 gm/dL (3.5-5.0); BASOPHIL # 0.1 K/uL (0.0-0.2); BASOPHIL % 0.6 %; CALCIUM 8.9 mg/dL (8.5-10.5); CREATININE 1.2 mg/dL (0.6-1.3); EOSINOPHIL # 0.6 K/uL (0.0-0.5); HEMATOCRIT 26.1 % (33.0-50.0); HEMOGLOBIN 8.1 g/dL (11.0-16.0); IMMATURE GRANULOCYTE # 0.1 K/uL (0.0-0.3); LYMPHOCYTE # 2.2 K/uL (0.8-4.0); LYMPHOCYTE % 27.2 %; MCH 29.8 pg (27.0-34.0); MONOCYTE # 1.5 K/uL (0.0-1.0); MONOCYTE % 18.1 %; MPV 9.2 fl (9.4-12.4); NEUTROPHIL # (ANC) 3.8 K/uL (1.4-9.0); NEUTROPHIL % 46.1 %; NRBC % 0 /100WBC (0-0.00); PLATELET COUNT 367 K/uL (150-450); RBC 2.72 M/uL (3.50-5.50); TOTAL PROTEIN 6.6 g/dL (6.0-8.4); WBC 8.2 K/uL (4.0-11.0)
[2016-08-09 08:54] LABS: ANION GAP 11.2 (10.0-19.0); POTASSIUM 6.2 mMol/L (3.7-5.1); TOTAL BILIRUBIN 0.4 mg/dL (0.0-1.5)
--- NOTE | 2016-08-09 17:46 | NUR ---
Significant Event: alert, opens eyes to stimulation, does not follow commands, grimaces with repositioning, nonverbal. stage 4 to coccyx, tolerates Promote 80ml/hr + 400ml H2O flush q6hr. per PEG, IVF per R)PICC, turn q2h, drsg/immobilizer to LLE, MRSA isolation. colace, miralax, kayexalate given - NO BM. Follow up: call with 1800 lab results. plan for Elli [facility] w/ PICC & gisela tomorrow
[2016-08-09 18:21] LABS: ANION GAP 9.2 (10.0-19.0); BLOOD UREA NITROGEN 46 mg/dL (6-24); CALCIUM 8.7 mg/dL (8.5-10.5); CHLORIDE 101 mMol/L (96-110); CO2 29 mMol/L (22-32); CREATININE 1.1 mg/dL (0.6-1.3); ESTIMATED GFR (MDRD EQUATION) > 60; SODIUM 134 mMol/L (135-145)
[2016-08-09 18:22] LABS: POTASSIUM 5.2 mMol/L (3.7-5.1)
[2016-08-10 04:55] LABS: ALBUMIN 2.1 gm/dL (3.5-5.0); ALK PHOS 110 IU/L (33-138); ALT 23 IU/L (12-78); ANION GAP 12.2 (10.0-19.0); AST 20 IU/L (10-40); BLOOD UREA NITROGEN 43 mg/dL (6-24); CALCIUM 8.5 mg/dL (8.5-10.5); CHLORIDE 100 mMol/L (96-110); CO2 28 mMol/L (22-32); CREATININE 1.1 mg/dL (0.6-1.3); ESTIMATED GFR (MDRD EQUATION) > 60; POTASSIUM 5.2 mMol/L (3.7-5.1); SODIUM 135 mMol/L (135-145); TOTAL BILIRUBIN 0.4 mg/dL (0.0-1.5); TOTAL PROTEIN 6.1 g/dL (6.0-8.4)
[2016-08-10 05:16] LABS: BASOPHIL % 0.4 %; EOSINOPHIL # 0.5 K/uL (0.0-0.5); EOSINOPHIL % 6.9 %; HEMATOCRIT 24.2 % (33.0-50.0); IMMATURE GRANULOCYTE # 0.1 K/uL (0.0-0.3); IMMATURE GRANULOCYTE % 0.9 %; LYMPHOCYTE # 1.3 K/uL (0.8-4.0); LYMPHOCYTE % 19.8 %; MCH 29.8 pg (27.0-34.0); MONOCYTE # 1.1 K/uL (0.0-1.0); MONOCYTE % 16.7 %; MPV 9.1 fl (9.4-12.4); NEUTROPHIL # (ANC) 3.8 K/uL (1.4-9.0); NEUTROPHIL % 55.3 %; NRBC % 0 /100WBC (0-0.00); PLATELET COUNT 331 K/uL (150-450); RBC 2.52 M/uL (3.50-5.50); RDW-CV 14.8 % (11.9-14.6); WBC 6.8 K/uL (4.0-11.0)
[2016-08-10 05:17] LABS: HEMOGLOBIN 7.5 g/dL (11.0-16.0)
--- NOTE | 2016-08-10 11:46 | NUR ---
Significant Event: Patient alert to voice at times. Tracks occasionally inthe room. Mumbled a few incomprehensible words this shift. Stiff and contracted. LLE does not withdraw to pain. The rest of his extremities do. VSS. Edema noted to bialteral hands with the right hand being more swollen. Xray ordered this shift of right hand. Afebrile. Room air with sats in the mid 90s. LS slightly coarse throughout. BS active X4. BM 08/09/16. Robles in place draining yellow urine. Adequate output. PEG tube with promote at 80 ml/hr. No residuals. 400 ml h20 flushes q6h. PICC to CHAPIN. SLL. Full lift. Stage 4 pressure sore to coccyx. Repositioned per protocol. Redness to groin. Patient on scheduled ultram. To transfer to [facility] at 1330. Follow up: Kayaxelate to be given this shift
--- NOTE | 2016-08-10 12:35 | NUR ---
Patient discharging today to [facility]. Called and faxed orders to Ainsley at [facility], gave nurse number for report. Called son and left voicemail with plan for dc at 1330 today via ambulance.
== END 2016-08-10 13:41 | DRG 853 ==
LOC: GMED 13:46 → GICU 15:59 → G3N 07-28 16:25 → GNTU 07-30 16:49
PROVIDERS: Emergency Medicine; Internal Medicine; Internal Medicine Critical Care Medicine; Internal Medicine Infectious Disease; Internal Medicine Nephrology; Nurse Practitioner; Nurse Practitioner Family; ADMIT Internal Medicine
PROC: 0BH17EZ Insertion of Endotracheal Airway into Trachea, Via Natural or Artificial Opening (ICD-10-PCS; 2016-07-17)
PROC: 5A1955Z Respiratory Ventilation, Greater than 96 Consecutive Hours (ICD-10-PCS; 2016-07-17)
PROC: 02HV33Z Insertion of Infusion Device into Superior Vena Cava, Percutaneous Approach (ICD-10-PCS; 2016-07-17)
PROC: B548ZZA Ultrasonography of Superior Vena Cava, Guidance (ICD-10-PCS; 2016-07-17)
PROC: 0S9D3ZZ Drainage of Left Knee Joint, Percutaneous Approach (ICD-10-PCS; 2016-07-17)
PROC: 30233N1 Transfusion of Nonautologous Red Blood Cells into Peripheral Vein, Percutaneous Approach (ICD-10-PCS; 2016-07-21)
PROC: 0SHD08Z Insertion of Spacer into Left Knee Joint, Open Approach (ICD-10-PCS; 2016-07-22)
PROC: 0SPD0JZ Removal of Synthetic Substitute from Left Knee Joint, Open Approach (ICD-10-PCS; 2016-07-22)
PROC: 3E0U029 Introduction of Other Anti-infective into Joints, Open Approach (ICD-10-PCS; 2016-07-22)
PROC: 30233N1 Transfusion of Nonautologous Red Blood Cells into Peripheral Vein, Percutaneous Approach (ICD-10-PCS; 2016-07-22)
PROC: 0DH67UZ Insertion of Feeding Device into Stomach, Via Natural or Artificial Opening (ICD-10-PCS; 2016-07-24)
PROC: 02HV33Z Insertion of Infusion Device into Superior Vena Cava, Percutaneous Approach (ICD-10-PCS; 2016-07-27)
PROC: 0DH67UZ Insertion of Feeding Device into Stomach, Via Natural or Artificial Opening (ICD-10-PCS; 2016-08-02)
PROC: 0DH63UZ Insertion of Feeding Device into Stomach, Percutaneous Approach (ICD-10-PCS; principal; 2016-08-04)
DX: A41.02 Sepsis due to Methicillin resistant Staphylococcus aureus (principal); R65.21 Severe sepsis with septic shock; J96.01 Acute respiratory failure with hypoxia; N17.0 Acute kidney failure with tubular necrosis; E43 Unspecified severe protein-calorie malnutrition; G93.41 Metabolic encephalopathy; L89.154 Pressure ulcer of sacral region, stage 4; J15.211 Pneumonia due to Methicillin susceptible Staphylococcus aureus; E87.0 Hyperosmolality and hypernatremia; I48.2 Chronic atrial fibrillation; E87.2 Acidosis; N39.0 Urinary tract infection, site not specified; M00.062 Staphylococcal arthritis, left knee; T84.033A Mechanical loosening of internal left knee prosthetic joint, initial encounter; Z68.21 Body mass index [BMI] 21.0-21.9, adult; F03.90 Unspecified dementia, unspecified severity, without behavioral disturbance, psychotic disturbance, mood disturbance, and anxiety; B95.62 Methicillin resistant Staphylococcus aureus infection as the cause of diseases classified elsewhere; R62.7 Adult failure to thrive; I25.10 Atherosclerotic heart disease of native coronary artery without angina pectoris; Z66 Do not resuscitate; Y83.8 Other surgical procedures as the cause of abnormal reaction of the patient, or of later complication, without mention of misadventure at the time of the procedure; Z86.73 Personal history of transient ischemic attack (TIA), and cerebral infarction without residual deficits; Z95.1 Presence of aortocoronary bypass graft; Z96.653 Presence of artificial knee joint, bilateral; N35.9 Urethral stricture, unspecified; E86.0 Dehydration; I12.9 Hypertensive chronic kidney disease with stage 1 through stage 4 chronic kidney disease, or unspecified chronic kidney disease; N18.3 Chronic kidney disease, stage 3 (moderate); E55.9 Vitamin D deficiency, unspecified; Z79.82 Long term (current) use of aspirin; Z87.891 Personal history of nicotine dependence; E87.6 Hypokalemia; D64.9 Anemia, unspecified; N13.9 Obstructive and reflux uropathy, unspecified; I48.91 Unspecified atrial fibrillation; Z78.1 Physical restraint status
CPT/HCPCS: C1713; C1751; C1776; C9113; J1160; J1644; J2185; J2250; J2270; J2370; J2765; J3010; J3370; J3475; J3480; J7030; J7040; J7050; J7060; J7120; P9016; P9045; P9047